=== PATIENT | female | born 1985 | race Caucasian/White ===

== ENCOUNTER 2024-08-29 10:21 | Outpatient (OUT) | payer OTHER, SELFPAY ==
[2024-08-29 11:00] LABS: Basophils Absolute Auto 0.2 10^3/uL (0.0-0.1); Basophils Percent Auto 1.5 % (0.2-2.0); Eosinophils Absolute Auto 0.3 10^3/uL (0.0-0.7); Eosinophils Percent Auto 3.4 % (0.9-7.0); Hematocrit 42.5 % (36.0-48.0); Hemoglobin 14.4 g/dL (12.0-16.0); INR 0.93; Immature Granulocytes Abs Auto 0.03 10^3/uL (0.00-0.03); Immature Granulocytes Pct Auto 0.3 % (0.0-0.5); Lymphocytes Absolute Auto 2.6 10^3/uL (1.2-3.8); Mean Corpuscular HGB Conc 33.9 g/dL (29.9-35.2); Mean Corpuscular Hemoglobin 31.2 pg (26.7-34.0); Mean Platelet Volume 9.2 fL (9.5-13.5); Monocytes Absolute Auto 0.4 10^3/uL (0.3-0.8); Monocytes Percent Auto 4.1 % (1.7-12.0); Neutrophils Absolute Auto 6.6 10^3/uL (1.4-6.5); Neutrophils Percent Auto 64.7 % (43.0-75.0); Partial Thromboplastin Time 33.8 sec (22.3-36.2); Platelet Count 401 10^3/uL (150-450); Prothrombin Time 9.9 sec (9.0-11.6); Red Blood Count 4.62 10^6/uL (4.20-5.40); Red Cell Distribution Width 13.1 % (11.0-15.0); White Blood Count 10.1 10^3/uL (4.0-11.0)
[2024-08-29 11:23] LABS: Free T4 0.78 ng/dL (0.76-1.46)
[2024-08-29 11:31] LABS: Estimated Average Glucose 105 mg/dL; Glycohemoglobin A1C 5.3 % (4.5-6.2)
[2024-08-29 11:33] LABS: HCG Quantitative <1 mIU/mL
== END 2024-08-29 10:22 | disposition home or self-care (01) ==
LOC: LAB 10:26
PROVIDERS: Family Provider Family Medicine; PCP Family Medicine; Visit Provider Physician Assistant
DX: N92.0 Excessive and frequent menstruation with regular cycle (principal)
CPT/HCPCS: 36415; 83036; 84439; 84443; 84702; 85025; 85610; 85730

== ENCOUNTER 2024-09-12 14:57 | Outpatient (OUT) | payer OTHER, SELFPAY ==
--- NOTE | 2024-09-12 15:00 | US_ITS ---
The [address] [address] Patient Name: NANCY PEDERSON MRN: [id number] date: 1985 Sex: F Assigned Patient Location: US Current Patient Location: US Accession/Order Number: [id number] Exam Date: 09/12/2024 22:27 Report Date: 09/12/2024 22:29 At the request of: NEO TA Procedure: US pelvis w/ transvaginal Pelvic ultrasound. Reason for exam: Right-sided pelvic pain on and off for 3 weeks. Comparison: Pelvic ultrasound 11/27/2019 Technique: Transabdominal imaging of the uterus and ovaries was performed. Transvaginal imaging of the uterus and ovaries was also obtained. Additional spectral Doppler analysis of the ovaries was also obtained. Findings: Uterus measures 8.2 x 3.6 x 5.4 cm. No fibroid is noted. Endometrium measures 5.5 mm without focal abnormality. No free fluid is seen. Right ovary measures 4.2 x 3.3 x 2.2 cm. Left ovary not visualized. Normal arterial and venous Doppler waveform of the right ovary. No adnexal mass. Dominant follicle is seen within the right ovary. US/US pelvis w/ transvaginal Impression: Unremarkable ultrasound. Impression dictated by: Jamarcus Manning Jr., D.O.09/12/2024 10:29 PM Dictation Location: [place] [address] Electronically authenticated by: [id number] Y Date: 09/12/2024 22:29
--- OUTSIDE RECORDS SUMMARY | 2024-09-12 15:06 | XMS_ITS | CCD ---
Author Organization [facility] Care Team Providers Care Retail Administrative Assistant Name Role Phone KEILY, DOM Admitting Unavailable KEILY, DOM Attending Unavailable KEILY, DOM Consulting Unavailable KEILY, DOM Admitting Unavailable KEILY, DOM Attending Unavailable MAXIMINO, EMMA Primary Care Unavailable KEILY, DOM Consulting Unavailable AHMED, ROSANGELA Consulting Unavailable KEILY, DOM Admitting Unavailable KEILY, DOM Attending Unavailable MAXIMINO, EMMA Primary Care Unavailable KEILY, DOM Consulting Unavailable SONIA VAZQUEZ Consulting Unavailable KEILY, DOM Admitting Unavailable KEILY, DOM Attending Unavailable MAXIMINO, EMMA Consulting Unavailable KEILY, DOM Consulting Unavailable Maximino MAYS, Emma Negrete Primary Care Provider CASIMIRO HARO Attending Unavailable HEMELLIE TILLEY Referring Unavailable HEMMER, ELLIE Primary Care Unavailable CASIMIRO HARO Attending Unavailable HEMMERELLIE Referring Unavailable MAXIMINO, EMMA F Primary Care Unavailable CASIMIRO HARO Attending Unavailable MAXIMINO, EMMA F Referring Unavailable MAXIMINO, EMMA F Primary Care Unavailable CASIMIRO HARO Attending Unavailable MAXIMINO, EMMA F Referring Unavailable MAXIMINO, EMMA F Primary Care Unavailable CASIMIRO HARO Attending Unavailable MAXIMINO, EMMA F Referring Unavailable MAXIMINO, EMMA F Primary Care Unavailable CASIMIRO HARO Attending Unavailable MAXIMINO, EMMA F Referring Unavailable MAXIMINO, EMMA F Primary Care Unavailable MYESHA TA Attending Unavailable RUPERTO SHIPMAN Attending Unavailable RUPERTO SHIPMAN Attending Unavailable MAXIMINO, EMMA F Attending Unavailable MAXIMINO, EMMA F Attending Unavailable SHANIKA ALEJANDRO Attending Unavailab le Allergies Allergy Classification Reported Allergen(s) Allergy Type Date of Onset Reaction(s) Facility (1 source) Codeine Drug Allergy 3 [facility] Repository (1 source) Penicillin Drug Allergy 3 [facility] Rep[facility] (11 sources) Cefadroxil; Translations: [CEFADROXIL] Drug Allergy 3 [facility] (11 sources) Penicillins; Translations: [PENICILLINS] Drug Intolerance 7 [facility] Medications Current Medications Medication Drug Class(es) Dates Sig (Normalized) Sig (Original) acetaminophen 500 mg oral tablet (10 sources) take 2 tablets by mouth in the morning acetaminophen (Tylenol) 500 MG tablet Take 1,000 mg by mouth in the morning. Active azithromycin 250 mg oral tablet (5 sources) Macrolide Antimicrobial Start: 05-10-2024 End: 07-23-2024 take 2 tablets by mouth once daily, then take 1 tablet by mouth once daily azithromycin (Zithromax) 250 MG tablet Indications: Acute bronchitis due to other specified organisms 2 tab po every day x1 day then 1 tab po every day x4 days 6 tablet 05/10/2024 07/23/2024 Discontinued cloNIDine hydrochloride 0.1 mg oral tablet (3 sources) Central alpha-2 Adrenergic Agonist Start: 01-18-2024 End: 01-17-2025 take 1 tablet by mouth twice daily as needed cloNIDine (Catapres) 0.1 MG tablet Take 0.1 mg by mouth 2 (two) times a day as needed 01/18/2024 05/10/2024 Discontinued (Therapy completed) ibuprofen 800 mg oral tablet (3 sources) Nonsteroidal Anti-inflammatory Drug Start: 08-29-2024 End: 09-08-2024 take 1 tablet by mouth every six hours for pain ibuprofen 800 MG tablet Indications: Cramp, abdominal , History of ovarian cyst Take 1 tablet (800 mg) by mouth every 6 (six) hours if needed for mild pain for up to 10 days 20 tablet 08/29/2024 09/08/2024 Active meloxicam 15 mg oral tablet (3 sources) Nonsteroidal Anti-inflammatory Drug Start: 02-15-2023 End: 05-10-2024 take 1 tablet by mouth in the morning meloxicam (Mobic) 15 MG tablet Indications: Cubital tunnel syndrome of both upper extremities Take 1 tablet (15 mg) by mouth in the morning. 30 tablet 1 02/15/2023 05/10/2024 Discontinued (Therapy completed) ofloxacin 3 mg/ml otic solution (2 sources) Quinolone Antimicrobial Start: 07-23-2024 End: 07-30-2024 ofloxacin (Floxin) 0.3 % otic solution Indications: Acute diffuse otitis externa of left ear Administer 10 drops into affected ear(s) Daily for 7 days 5 mL 07/23/2024 07/30/2024 Active temazepam 15 mg oral capsule (8 sources) Benzodiazepine Start: 07-11-2024 temazepam (Restoril) 15 MG capsule Take 15 mg by mouth as needed at bedtime for sleep 07/11/2024 Active End: 07-23-2024 temazepam (Restoril) 7.5 MG capsule Take 7.5 mg by mouth as needed at bedtime for sleep 07/23/2024 Discontinued vortioxetine 10 mg oral tablet (9 sources) Start: 07-11-2024 take 1 tablet by mouth in the morning Vortioxetine HBr 10 MG tablet Take 10 mg by mouth in the morning. 07/11/2024 Active Start: 01-18-2024 End: 07-23-2024 Vortioxetine HBr (Trintellix ) 5 MG tablet 01/18/2024 07/23/2024 Discontinued Problems Active Problems Problem Classification Problem Date Documented Date Episodic/Chronic Abdominal pain (2 sources) Finding of sensation of abdomen; Translations: [Unspecified abdominal pain] 08-29-2024 Episodic Abdominal pain (4 sources) Pelvic and perineal pain; Translations: [PELVIC AND PERINEAL PAIN] Onset: 12-28-2019 Acute bronchitis (2 sources) Acute infective bronchitis; Translations: [Acute bronchitis due to other specified organisms] 05-10-2024 Episodic Anxiety disorders (11 sources) Generalized anxiety disorder; Translations: [Generalized anxiety disorder] Onset: 01-18-2024 01-20-2024 Chronic Contraceptive and procreative management (2 sources) Encounter for sterilization; Translations: [Encounter for removal of intrauterine contraceptive device] Onset: 01-21-2020 Episodic Diabetes mellitus with complications (4 sources) Type 2 diabetes mellitus with other circulatory complications; Translations: [TYP 2 DM W/CIRC COMPLICATIONS] Onset: 12-21-2019 Chronic Hypertension with complications and secondary hypertension (10 sources) Nephrosclerosis; Translations: [Hypertensive chronic kidney disease with stage 1 through stage 4 chronic kidney disease, or unspecified chronic kidney disease] Onset: 01-05-2023 01-05-2023 Chronic Menstrual disorders (8 sources) Irregular menstruation, unspecified; Translations: [Dysmenorrhea, unspecified] Onset: 11-27-2019 08-29-2024 Chronic Mood disorders (20 sources) Depressive disorder; Translations: [Depression] Onset: 01-05-2023 01-05-2023 Chronic Other ear and sense organ disorders (10 sources) Conductive hearing loss; Translations: [Conductive hearing loss, unspecified] Onset: 01-05-2023 01-05-2023 Chronic Other ear and sense organ disorders (2 sources) Acute otitis externa; Translations: [Diffuse otitis externa, left ear] 07-23-2024 Episodic Other female genital disorders (2 sources) History of gynecological disorder; Translations: [Personal history of other diseases of the female genital tract] 08-29-2024 Episodic Ovarian cyst (1 source) Unspecified ovarian cyst, right side; Translations: [UNSPECIFIED OVARIAN CYST RIGHT SIDE] Onset: 01-21-2020 Substance-related disorders (1 source) Nicotine dependence, cigarettes, uncomplicated; Translations: [NICOTINE DEPEND CIGARETTES UNCOMP] Onset: 01-21-2020 Chronic Past or Other Problems Problem Classification Problem Date Documented Date Episodic/Chronic Immunizations and screening for infectious disease (1 source) Encounter for screening for human papillomavirus (HPV); Translations: [ENC SCREENING HUMAN PAPILLOMAVIRUS] Onset: 09-26-2019 Episodic Mood disorders (10 sources) Mood disorders Onset: 09-19-2023 09-19-2023 Other connective tissue disease (10 sources) Pain of bilateral upper limbs; Translations: [Pain in right arm] Onset: 02-22-2023 02-22-2023 Episodic Other screening for suspected conditions (not mental disorders or infectious disease) (4 sources) Encounter for screening for malignant neoplasm of cervix; Translations: [ENC SCREENING MALIG NEOPLASM CERV] Onset: 09-24-2019 Episodic Residual codes; unclassified (10 sources) Insomnia; Translations: [Insomnia, unspecified] Onset: 01-05-2023 01-05-2023 Episodic Results Test Name Value Interpretation Reference Range Facility ALL CBC WITH AUTO DIFFon BASOPHILS ABSOLUTE AUTO 0.2 High [facility] Basophils/100 WBC (Bld) 1.5 % 0.2 - 2.0 % [facility] Eosinophils/100 WBC (Bld) 3.4 % 0.9 - 7.0 % [facility] Erythrocyte distribution width (RBC) [Ratio] 13.1 % 11.0 - 15.0 % [facility] Hematocrit (Bld) [Volume fraction] 42.5 % 36.0 - 48.0 % [facility] Hemoglobin (Bld) [Mass/Vol] 14.4 g/dL 12.0 - 16.0 g/dL [facility] IMMATURE GRANULOCYTES ABS AUTO 0.03 [facility] Immature granulocytes/100 WBC (Bld) 0.3 % 0.0 - 0.5 % [facility] Interpretation and review of laboratory results Abnormal [facility] re LYMPHOCYTES ABSOLUTE AUTO 2.6 [facility] Lymphocytes/100 WBC (Bld) 26 % 20.5 - 60.0 % [facility] MCH (RBC) [Entitic mass] 31.2 pg 26.7 - 34.0 pg [facility] MCHC (RBC) [Mass/Vol] 33.9 g/dL 29.9 - 35.2 g/dL [facility] MCV (RBC) [Entitic vol] 92 fL 81.0 - 99.0 fL [facility] MONOCYTES ABSOLUTE AUTO 0.4 [facility] Monocytes/100 WBC (Bld) 4.1 % 1.7 - 12.0 % [facility] NEUTROPHILS ABSOLUTE AUTO 6.6 High [facility] Neutrophils/100 WBC (Bld) 64.7 % 43.0 - 75.0 % [facility] Platelet mean volume (Bld) [Entitic vol] 9.2 fL Low 9.5 - 13.5 fL [facility] TBH EO # 0.3 [facility] [address] [facility] RBC 4.62 [facility] e [facility] WBC 10.1 [facility] Urinalysis macro (dipstick) panel (U)on 08-29-2024 Bilirubin, UA Negative Negative - 4(70) +++ mg/dL [facility] Blood, UA Positive Negative - 50 Myron/mcL [facility] Comment on above: trace-intact Clarity, UA Clear [facility] re Color, UA Yellow [facility] e Glucose, UA Negative Negative - 2000(110) ++++ mg/dL [facility] Interpretation and review of laboratory results Abnormal [facility] re Ketones, UA Negative Negative - 160(16) ++++ mg/dL [facility] Leukocytes, UA Negative Negative - 500+++ Johanna/mcL [facility] Nitrite, UA Negative Negative - Positive [facility] pH, UA 6.5 5 - 9 [facility] e Protein, UA Negative Negative - 2000(20) ++++ mg/dL [facility] Spec Grav, UA 1.015 1 - 1.03 [facility] Urobilinogen, UA 0.2 0.2 - 12 mg/dL [facility] Orderson 05-08-2020 Provider Orders [id number] [facility] Coding Summaryon 05-02-2020 Coding Summary CODING DATE: 05/02/2020 [facility] STATUS: Home PAYOR: Commercial Insurance APC DESCRIPTION 5522 Level 2 Imaging without Contrast ADMIT DX: REASON FOR VISIT DX: H92.11 Otorrhea, right ear FINAL DX: PRINCIPAL: H92.11 Otorrhea, right ear SECONDARY: PYMT PROC APC STAT DESCRIPTION DOCTOR NAME DATE NOTE: The code number assigned matches the documented diagnosis and / or procedure in the patient's chart. However, the narrative phrase printed from the coding software may appear abbreviated, or result in slightly different terminology. Coded By: Alanis Oliveira Date Saved: 05/02/2020 11:[address] am [facility] [address] Orbit Sella etc. w/o Cont [facility] 05-01-2020 CT Orbit Sella etc. w/o Contrast EXAMINATION: CT Orbit Sella etc. w/o Contrast. HISTORY: Conductive hearing loss, unspecified, otorrhea, right ear, unspecified perforation of tympanic membrane, unspecified ear, otorrhea, unspecified ear, otitis media, unspecified, unspecified ear, personal history of other diseases of the nervous system and se COMPARISON: None. TECHNIQUE: CT scan performed through the skull base and temporal bones, reconstructed in the axial, coronal and sagittal plane. Dose reduction techniques were achieved by using automated exposure control and/or adjustment of mA and/or kV according to patient size and/or use of iterative reconstruction technique. FINDINGS: Patient is status post prior mastoidectomy. The surgical bed is opacified. The residual mastoid air cells are opacified. Opacification of the mastoid attic and middle ear, extending into the region of the round and oval windows. No evidence of erosion of the lateral semicircular canal. The otic capsule is normal in appearance. Facial nerve is normal in course. No evidence of osseous dehiscence at the level of the jugular bulb or carotid canal. The contralateral temporal bone is normal in appearance. IMPRESSION: 1. Complete opacification of the surgical bed status post right mastoidectomy as well as opacification of the residual mastoid air cells, mastoid attic and middle ear. 2. No evidence of erosion of the lateral semicircular canal. 3. The facial nerve is normal in course and there is no evidence of osseous dehiscence of the vascular structures. Final Dictated by: Ascencion Godinez Dictated DT/TM: 05/02/20 8:52 Signed (Electronic Signature): Ascencion Godinez 05/02/20 10:35 a Technologist: KAITLIN SPARROW [facility] Coding Summaryon 04-20-2020 Coding Summary CODING DATE: 04/20/2020 [facility] STATUS: Home PAYOR: Commercial Insurance ADMIT DX: REASON FOR VISIT DX: H92.01 Otalgia, right ear FINAL DX: PRINCIPAL: H66.91 Otitis media, unspecified, right ear SECONDARY: PYMT PROC APC STAT DESCRIPTION DOCTOR NAME DATE NOTE: The code number assigned matches the documented diagnosis and / or procedure in the patient's chart. However, the narrative phrase printed from the coding software may appear abbreviated, or result in slightly different terminology. Coded By: Mike Rahman Date Saved: 04/20/2020 01:12 pm [facility] Coding Summary CODING DATE: 04/20/2020 [facility] STATUS: Home PAYOR: Commercial Insurance ADMIT DX: REASON FOR VISIT DX: H92.01 Otalgia, right ear FINAL DX: PRINCIPAL: H66.91 Otitis media, unspecified, right ear SECONDARY: PYMT PROC APC STAT DESCRIPTION DOCTOR NAME DATE NOTE: The code number assigned matches the documented diagnosis and / or procedure in the patient's chart. However, the narrative phrase printed from the coding software may appear abbreviated, or result in slightly different terminology. Coded By: Mike Rahman Date Saved: 04/20/2020 01:11 pm [facility] ED Clinical Summaryon 2019 ED Clinical Summary [facility] [address] [place], [place] [id number] ED Clinical Summary PERSON INFORMATION Name: SVITLANA OSEGUERA Age: 35 Years Sex: FEMALE : 1985 MRN: Acct#: Visit Reason: Ear pain; C/O RIGHT EAR PAIN Arrival: 04/16/2020 22:23:02 Discharge: 04/16/2020 22:56:00 LOS: 000 00:33 Check In: 04/16/2020 22:23:02 Checkout:04/16/2020 22:56:00 Address: [address] [facility] [id number] PCP: Ellie Denis PROVIDER INFORMATION Provider Role Assigned Unassigned Clarence Torre PA-C ED PA 04/16/2020 22:24:56 Amandeep RN, Ashly ED Nurse 04/16/2020 22:29:26 VITALS INFORMATION Vital Sign Triage Latest Temperature Tympanic Temperature Temporal Artery Pulse Rate 86 bpm 86 bpm O2 Sat 100 % 100 % Respiratory Rate 18 br/min 18 br/min Blood Pressure /88 mmHg /88 mmHg MEDICAL INFORMATION Medications Given: Medication Dose Route ketorolac 30 mg IM doxycycline 100 mg PO Allergy Information: penicillins; codeine PHYSICIAN DOCUMENTATION Patient: SVITLANA OSEGUERA Age: 35 years Sex: FEMALE : 1985 Associated Diagnoses: Otitis media of right ear Author: Clarence Torre PA-C Basic Information Time seen: Date & time 04/16/2020 22:26:00. History source: Patient. Arrival mode: Private vehicle. History limitation: None. History of Present Illness 35-year-old female presents here to the emergency department this evening with chief complaint of right ear pain that started yesterday. Patient states discomfort started last evening in which tonight she went to go to bed and could not due to severe pain. Patient states she has had multiple ear infections in the past and when she has a ruptured left tympanic membrane. 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 Patient denies any fever chills denies any sore throat nasal congestion rhinorrhea or cough. Denies any Cobin exposure recent sick contacts or travel. She denies any cough shortness of breath or chest pain. Denies any abdominal pain nausea vomiting or diarrhea. Patient notes allergy to codeine and penicillins. Notes they typically would treat her with Zithromax and Floxin drops however states that Zithromax does not work anymore as she has had so many ear infections. Is unsure of the last time she had a cephalosporin in regards to penicillin allergy. She has no other concerns at this time. Review of Systems Constitutional symptoms: No fever, no chills, no sweats, no weakness, no fatigue. Skin symptoms: No rash, no pruritus, no abrasions. Eye symptoms: Vision unchanged. ENMT symptoms: Ear pain, no sore throat, no nasal congestion, no sinus pain. Respiratory symptoms: No shortness of breath, no cough. Cardiovascular symptoms: No chest pain, Gastrointestinal symptoms: No abdominal pain, no nausea, no vomiting, no diarrhea. Genitourinary symptoms: No dysuria, no hematuria. Musculoskeletal symptoms: No back pain, no Muscle pain, no Joint pain. Neurologic symptoms: No headache, Additional review of systems information: All other systems reviewed and otherwise negative. Health Status Allergies: Allergic Reactions (Selected) Severity Not Documented Codeine- No reactions were documented. Penicillins- No reactions were documented.. Medications: (Selected) Inpatient Medications Completed Toradol: 30 mg = 1 mL, IM, Once doxycycline hyclate: 100 mg = 1 cap(s), PO, Once Discontinued Floxin 0.3% otic solution: 10 drop(s), Right ear, Once Prescriptions Prescribed Zithromax 250 mg oral tablet: 1 packet(s), PO, Once, as directed on package labeling, 6 tab(s), 0 Refill(s) doxycycline hyclate 100 mg oral capsule: 100 mg, PO, BID, for 7 day(s), 14 cap(s), 0 Refill(s) ofloxacin 0.3% otic solution: 10 drop(s), Otic, Daily, for 7 day(s), Right ear, 5 mL, 0 Refill(s) Completed Floxin 0.3% otic solution: 10 drop(s), Right ear, Daily, for 7 day(s), 5 mL, 1 Refill(s). Menstrual history: Tubal ligation. Past Medical/ Family/ Social History Surgical history: Tubal ligation ([id number]). Comments: 04/16/2020 22:32 EDT - Amandeep EVANS, Ashly 2019. Social history: Social & Psychosocial Habits Alcohol 04/16/2020 Alcohol Use: Current Frequency: 1-2 times per week Substance Abuse 03/19/2019 Substance use: Never Tobacco 04/16/2020 Smoking tobacco use: Never (less than 100 in l Electronic Cigarette/Vaping 04/16/2020 Electronic Cigarette Use: Never . Physical Examination General: Alert, no acute distress. Skin: Warm, dry, intact, no pallor, no rash. Head: Normocephalic, atraumatic. Eye: Pupils are equal, round and reactive to light, extraocular movements are intact, normal conjunctiva. Ears, nose, mouth and throat: Oral mucosa moist, no pharyngeal erythema or exudate, Patient has a ruptured left tympanic membrane however ear appears unremarkable. Right canal is patent. Patient has old scarring at the posterior ear as she states the ear got ripped off and had to be sewn back on. Patient has an erythematous right tympanic membrane with a bulging. Some fluid behind the TM. Appears to have an acute otitis media of the right ear. No tonsillar erythema or exudate. No signs of peritonsillar abscess. No trismus or drooling.. Cardiovascular: Regular rate and rhythm, No murmur, Normal peripheral perfusion, No edema, S1, S2, regular rhythm. No murmurs gallops or rubs.. Respiratory: Lungs are clear to auscultation, respirations are non-labored, breath sounds are equal, Symmetrical chest wall expansion, Lung sounds are clear bilaterally. No wheezing rhonchi or crackles on exam.. Neurological: Alert and oriented to person, place, time, and situation, No focal neurological deficit observed, normal sensory observed, normal motor observed, normal speech observed, normal coordination observed, Normal sensory, motor, speech, coordination is observed on exam of the patient.. Psychiatric: Cooperative, appropriate mood & affect, normal judgment, non-suicidal. Medical Decision Making Orders [facility] Orders Pharmacy: Toradol (Order): 30 mg, IM, Once Floxin 0.3% otic solution (Order): 10 drop(s), Right ear, Once, [facility]: doxycycline hyclate (Order): 100 mg, PO, Once, [facility]: Floxin 0.3% otic solution (Discontinue): 10 drop(s), Right ear, Once. Reexamination/ Reevaluation 22:43 I spoke with patient regards to history of ear infections she believes she was placed on cephalosporin last time as she has had Zithromax in the past due to penicillin allergy in which Zithromax no longer typically works for her ear infections. She is unsure as to which cephalosporin worked for her and she denies reactivity but states that her penicillin allergy is kind of severe and she is allergic to many of its relatives. Is unsure the last time she had a cephalosporin antibiotic. I spoke with attending physician in regards to right otitis media and antibiotic choice at which this time we use doxycycline twice daily over the next 7 days in which patient is given 1 dose here in the emergency department. Patient discharged home to follow closely with primary care provider as well as with ENT in regards to right otitis media as she has had multiple issues with the right ear in the past including mastoiditis inner and outer ear infections. Patient also requested Floxin drops which always helps with her ear infections will do that for her today. Patient understands that she may return here to the emergency department for any worsening or concerning symptoms understands to follow closely with primary care provider in 3 to 5 days she will contact her office tomorrow morning to schedule follow-up appointment. Impression and Plan Diagnosis Otitis media of right ear ([id number] H66.91, Discharge, Medical) Plan Condition: Stable. Disposition: Discharged: Time 04/16/2020 22:45:00, to home. Prescriptions: [facility] prescriptions Pharmacy: doxycycline hyclate 100 mg oral capsule (Prescribe): 100 mg, PO, BID, for 7 day(s), 14 cap(s), 0 Refill(s), [facility] prescriptions [facility]: ofloxacin 0.3% otic solution (Prescribe): 10 drop(s), Otic, Daily, for 7 day(s), Right ear, 5 mL, 0 Refill(s). Patient was given the following educational materials: Otitis Media, Adult, Otitis Media, Adult, Otitis Media, Adult, Otitis Media, Adult. Follow up with: Joao Guaman Within 3 to 5 days; Ellie Denis Within 3 to 5 days Please follow closely with your primary care provider in 3 to 5 days. Please contact her office tomorrow morning to schedule follow-up appointment in regards to right ear pain and right inner ear infection. You were seen and evaluated in the emergency department for right ear pain that started last evening worse today. You were treated with Toradol for pain as well as doxycycline, antibiotic which she will take twice daily over the next 7 days this was sent to [facility] for you. A prescription also for Floxin eardrops was sent to [facility] for you. 10 drops in the right ear daily over the next 7 days which he should lie on the opposite side when placing eardrops and lie there for 5 minutes before standing. Continue Tylenol or ibuprofen as needed for pain follow-up with footwear factory worker if continued right ear pain or discomfort. Information is given for you in regards to local ENT Dr. Guaman. You may return here to the emergency department for any worsening or concerning symptoms.. Counseled: Patient, Regarding diagnosis, Regarding treatment plan, Regarding prescription, Patient indicated understanding of instructions. DISCHARGE INFORMATION: Discharge Disposition: Home Discharge Location: Home PATIENT EDUCATION INFORMATION Instructions: Otitis Media, Adult Follow-Up: With: Address: When: Ellie Denis [address] [place] [address] [address] [place] [address] [facility] (1) Within 3 to 5 days Comments: Please follow closely with your primary care provider in 3 to 5 days. Please contact her office tomorrow morning to schedule follow-up appointment in regards to right ear pain and right inner ear infection. You were seen and evaluated in the emergency department for right ear pain that started last evening worse today. You were treated with Toradol for pain as well as doxycycline, antibiotic which she will take twice daily over the next 7 days this was sent to [facility] for you. A prescription also for Floxin eardrops was sent to [facility] for you. 10 drops in the right ear daily over the next 7 days which he should lie on the opposite side when placing eardrops and lie there for 5 minutes before standing. Continue Tylenol or ibuprofen as needed for pain follow-up with footwear factory worker if continued right ear pain or discomfort. Information is given for you in regards to local ENT Dr. Guaman. You may return here to the emergency department for any worsening or concerning symptoms. With: Address: When: Joao Guaman [address] [place], [place] [id number] Business (1) Within 3 to 5 days DIAGNOSIS: Otitis media of right ear Patient Understands: Yes - Patient/family/caregi dillon verbalizes understanding of instructions given Comment: [facility] ED Note - Physicianon 2019 ED Note - Physician Patient: SVITLANA OSEGUERA Age: 35 years Sex: FEMALE : 1985 Associated Diagnoses: Otitis media of right ear Author: Nicho GALLAGHER, Clarence Amaral Basic Information Time seen: Date & time 04/16/2020 22:26:00. History source: Patient. Arrival mode: Private vehicle. History limitation: None. History of Present Illness 35-year-old female presents here to the emergency department this evening with chief complaint of right ear pain that started yesterday. Patient states discomfort started last evening in which tonight she went to go to bed and could not due to severe pain. Patient states she has had multiple ear infections in the past and when she has a ruptured left tympanic membrane. 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 Patient denies any fever chills denies any sore throat nasal congestion rhinorrhea or cough. Denies any Cobin exposure recent sick contacts or travel. She denies any cough shortness of breath or chest pain. Denies any abdominal pain nausea vomiting or diarrhea. Patient notes allergy to codeine and penicillins. Notes they typically would treat her with Zithromax and Floxin drops however states that Zithromax does not work anymore as she has had so many ear infections. Is unsure of the last time she had a cephalosporin in regards to penicillin allergy. She has no other concerns at this time. Review of Systems Constitutional symptoms: No fever, no chills, no sweats, no weakness, no fatigue. Skin symptoms: No rash, no pruritus, no abrasions. Eye symptoms: Vision unchanged. ENMT symptoms: Ear pain, no sore throat, no nasal congestion, no sinus pain. Respiratory symptoms: No shortness of breath, no cough. Cardiovascular symptoms: No chest pain, Gastrointestinal symptoms: No abdominal pain, no nausea, no vomiting, no diarrhea. Genitourinary symptoms: No dysuria, no hematuria. Musculoskeletal symptoms: No back pain, no Muscle pain, no Joint pain. Neurologic symptoms: No headache, Additional review of systems information: All other systems reviewed and otherwise negative. Health Status Allergies: Allergic Reactions (Selected) Severity Not Documented Codeine- No reactions were documented. Penicillins- No reactions were documented.. Medications: (Selected) Inpatient Medications Completed Toradol: 30 mg = 1 mL, IM, Once doxycycline hyclate: 100 mg = 1 cap(s), PO, Once Discontinued Floxin 0.3% otic solution: 10 drop(s), Right ear, Once Prescriptions Prescribed Zithromax 250 mg oral tablet: 1 packet(s), PO, Once, as directed on package labeling, 6 tab(s), 0 Refill(s) doxycycline hyclate 100 mg oral capsule: 100 mg, PO, BID, for 7 day(s), 14 cap(s), 0 Refill(s) ofloxacin 0.3% otic solution: 10 drop(s), Otic, Daily, for 7 day(s), Right ear, 5 mL, 0 Refill(s) Completed Floxin 0.3% otic solution: 10 drop(s), Right ear, Daily, for 7 day(s), 5 mL, 1 Refill(s). Menstrual history: Tubal ligation. Past Medical/ Family/ Social History Surgical history: Tubal ligation ([id number]). Comments: 04/16/2020 22:32 NOET - Amandeep EVANS, Ashly 2019. Social history: Social & Psychosocial Habits Alcohol 04/16/2020 Alcohol Use: Current Frequency: 1-2 times per week Substance Abuse 03/19/2019 Substance use: Never Tobacco 04/16/2020 Smoking tobacco use: Never (less than 100 in l Electronic Cigarette/Vaping 04/16/2020 Electronic Cigarette Use: Never . Physical Examination General: Alert, no acute distress. Skin: Warm, dry, intact, no pallor, no rash. Head: Normocephalic, atraumatic. Eye: Pupils are equal, round and reactive to light, extraocular movements are intact, normal conjunctiva. Ears, nose, mouth and throat: Oral mucosa moist, no pharyngeal erythema or exudate, Patient has a ruptured left tympanic membrane however ear appears unremarkable. Right canal is patent. Patient has old scarring at the posterior ear as she states the ear got ripped off and had to be sewn back on. Patient has an erythematous right tympanic membrane with a bulging. Some fluid behind the TM. Appears to have an acute otitis media of the right ear. No tonsillar erythema or exudate. No signs of peritonsillar abscess. No trismus or drooling.. Cardiovascular: Regular rate and rhythm, No murmur, Normal peripheral perfusion, No edema, S1, S2, regular rhythm. No murmurs gallops or rubs.. Respiratory: Lungs are clear to auscultation, respirations are non-labored, breath sounds are equal, Symmetrical chest wall expansion, Lung sounds are clear bilaterally. No wheezing rhonchi or crackles on exam.. Neurological: Alert and oriented to person, place, time, and situation, No focal neurological deficit observed, normal sensory observed, normal motor observed, normal speech observed, normal coordination observed, Normal sensory, motor, speech, coordination is observed on exam of the patient.. Psychiatric: Cooperative, appropriate mood & affect, normal judgment, non-suicidal. Medical Decision Making Orders Launch Orders Pharmacy: Toradol (Order): 30 mg, IM, Once Floxin 0.3% otic solution (Order): 10 drop(s), Right ear, Once, [facility] Orders [facility]: doxycycline hyclate (Order): 100 mg, PO, Once, [facility]: Floxin 0.3% otic solution (Discontinue): 10 drop(s), Right ear, Once. Reexamination/ Reevaluation 22:43 I spoke with patient regards to history of ear infections she believes she was placed on cephalosporin last time as she has had Zithromax in the past due to penicillin allergy in which Zithromax no longer typically works for her ear infections. She is unsure as to which cephalosporin worked for her and she denies reactivity but states that her penicillin allergy is kind of severe and she is allergic to many of its relatives. Is unsure the last time she had a cephalosporin antibiotic. I spoke with attending physician in regards to right otitis media and antibiotic choice at which this time we use doxycycline twice daily over the next 7 days in which patient is given 1 dose here in the emergency department. Patient discharged home to follow closely with primary care provider as well as with ENT in regards to right otitis media as she has had multiple issues with the right ear in the past including mastoiditis inner and outer ear infections. Patient also requested Floxin drops which always helps with her ear infections will do that for her today. Patient understands that she may return here to the emergency department for any worsening or concerning symptoms understands to follow closely with primary care provider in 3 to 5 days she will contact her office tomorrow morning to schedule follow-up appointment. Impression and Plan Diagnosis Otitis media of right ear ([id number] H66.91, Discharge, Medical) Plan Condition: Stable. Disposition: Discharged: Time 04/16/2020 22:45:00, to home. Prescriptions: Launch prescriptions Pharmacy: doxycycline hyclate 100 mg oral capsule (Prescribe): 100 mg, PO, BID, for 7 day(s), 14 cap(s), 0 Refill(s), [facility] prescriptions Pharmacy: ofloxacin 0.3% otic solution (Prescribe): 10 drop(s), Otic, Daily, for 7 day(s), Right ear, 5 mL, 0 Refill(s). Patient was given the following educational materials: Otitis Media, Adult, Otitis Media, Adult, Otitis Media, Adult, Otitis Media, Adult. Follow up with: Joao Guaman Within 3 to 5 days; Ellie Denis Within 3 to 5 days Please follow closely with your primary care provider in 3 to 5 days. Please contact her office tomorrow morning to schedule follow-up appointment in regards to right ear pain and right inner ear infection. You were seen and evaluated in the emergency department for right ear pain that started last evening worse today. You were treated with Toradol for pain as well as doxycycline, antibiotic which she will take twice daily over the next 7 days this was sent to [facility] for you. A prescription also for Floxin eardrops was sent to [facility] for you. 10 drops in the right ear daily over the next 7 days which he should lie on the opposite side when placing eardrops and lie there for 5 minutes before standing. Continue Tylenol or ibuprofen as needed for pain follow-up with footwear factory worker if continued right ear pain or discomfort. Information is given for you in regards to local ENT Dr. Guaman. You may return here to the emergency department for any worsening or concerning symptoms.. Counseled: Patient, Regarding diagnosis, Regarding treatment plan, Regarding prescription, Patient indicated understanding of instructions. [Electronically Signed on: 04/16/2020 22:56 EDT] Clarence Torre PA-C [Verified on: 04/16/2020 22:56 EDT] Clarence Torre PA-C [facility] ED Note-Nursingon 04-17-2020 ED Note-Nursing Pt arrives to ED angelina m 7 complaining of right ear pain since yesterday. Pt states that today she has taken the max dose of tylenol and she couldn't take anymore. Pt states that her pain is an 11/10 and that she has a history of issues with this ear. Pt states that she feels like her ear is going to explode. Pt denies any other complaints at this time. She states that she had a tubal this year but nothing else in her history has changed. Pt currently resting on cart. [facility] ED Patient Education Noteon 04-17-2020 ED Patient Education Note Education Materials ENT Otitis Media, Adult Otitis media occurs when there is inflammation and fluid in the middle ear. Your middle ear is a part of the ear that contains bones for hearing as well as air that helps send sounds to your brain. What are the causes? This condition is caused by a blockage in the eustachian tube. This tube drains fluid from the ear to the back of the nose (nasopharynx). A blockage in this tube can be caused by an object or by swelling (edema) in the tube. Problems that can cause a blockage include: ? A cold or other upper respiratory infection. ? Allergies. ? An irritant, such as tobacco smoke. ? Enlarged adenoids. The adenoids are areas of soft tissue located high in the back of the throat, behind the nose and the roof of the mouth. ? A mass in the nasopharynx. ? Damage to the ear caused by pressure changes (barotrauma). What are the signs or symptoms? Symptoms of this condition include: ? Ear pain. ? A fever. ? Decreased hearing. ? A headache. ? Tiredness (lethargy). ? Fluid leaking from the ear. ? Ringing in the ear. How is this diagnosed? This condition is diagnosed with a physical exam. During the exam your health care provider will use an instrument called an otoscope to look into your ear and check for redness, swelling, and fluid. He or she will also ask about your symptoms. Your health care provider may also order tests, such as: ? A test to check the movement of the eardrum (pneumatic otoscopy). This test is done by squeezing a small amount of air into the ear. ? A test that changes air pressure in the middle ear to check how well the eardrum moves and whether the eustachian tube is working (tympanogram). How is this treated? This condition usually goes away on its own within 3?5 days. But if the condition is caused by a bacteria infection and does not go away own its own, or keeps coming back, your health care provider may: ? Prescribe antibiotic medicines to treat the infection. ? Prescribe or recommend medicines to control pain. Follow these instructions at home: ? Take zzig-oed-zgibudu and prescription medicines only as told by your health care provider. ? If you were prescribed an antibiotic medicine, take it as told by your health care provider. Do not stop taking the antibiotic even if you start to feel better. ? Keep all follow-up visits as told by your health care provider. This is important. Contact a health care provider if: ? You have bleeding from your nose. ? There is a lump on your neck. ? You are not getting better in 5 days. ? You feel worse instead of better. Get help right away if: ? You have severe pain that is not controlled with medicine. ? You have swelling, redness, or pain around your ear. ? You have stiffness in your neck. ? A part of your face is paralyzed. ? The bone behind your ear (mastoid) is tender when you touch it. ? You develop a severe headache. Summary ? Otitis media is redness, soreness, and swelling of the middle ear. ? This condition usually goes away on its own within 3?5 days. ? If the problem does not go away in 3?5 days, your health care provider may prescribe or recommend medicines to treat your symptoms. ? If you were prescribed an antibiotic medicine, take it as told by your health care provider. This information is not intended to replace advice given to you by your health care provider. Make sure you discuss any questions you have with your health care provider. Document Released: 04/01/2005 Document Revised: 06/09/2018 Document Reviewed: 06/17/2017 [employer] Patient Education ? 2019 [employer]. [facility] ED Patient Summaryon 020 ED Patient Summary [facility] - [facility] Department [address] [id number] PATIENT DISCHARGE INSTRUCTIONS Patient Information Name: SVITLANA OSEGUERA Age: 35 Years Date of : 1985 Reason For Visit: Ear pain; C/O RIGHT EAR PAIN Arrival Time: 04/16/2020 22:23:02 Primary Care Physician: Ellie Denis Attending Physician: Adriano Doherty DO Comment: Visit Diagnosis: Diagnoses This Visit Ear pain ([id number]) Otitis media of right ear (H66.91) Prescription Information: If you have been given a prescription for narcotics, seek immediate medical attention if you have any difficulty breathing or any sudden status changes such as confusion and sleepiness. If you or anyone you know is experiencing suicidal thoughts, mental health, alcohol and/or drug addiction problems; contact the [facility] 31/01 Crisis Hotline -Text 9SXWM vz 250092. If you received any narcotics, sedation, or any other medication that causes drowsiness for the next 24 hours, unless otherwise directed: ? Do not drive a car. ? Do not operate machinery such as power tools, lawn mowers, drills, sewing machines, or stoves ? Avoid alcoholic beverages and drugs for allergies, nerves, or sleep ? Do not make important personal or business decisions or sign any legal documents With: Address: When: Ellie Denis [address] [place] [address] [address] [place] [address] Business (1) Within 3 to 5 days Comments: Please follow closely with your primary care provider in 3 to 5 days. Please contact her office tomorrow morning to schedule follow-up appointment in regards to right ear pain and right inner ear infection. You were seen and evaluated in the emergency department for right ear pain that started last evening worse today. You were treated with Toradol for pain as well as doxycycline, antibiotic which she will take twice daily over the next 7 days this was sent to [facility] for you. A prescription also for Floxin eardrops was sent to [facility] for you. 10 drops in the right ear daily over the next 7 days which he should lie on the opposite side when placing eardrops and lie there for 5 minutes before standing. Continue Tylenol or ibuprofen as needed for pain follow-up with footwear factory worker if continued right ear pain or discomfort. Information is given for you in regards to local ENT Dr. Guaman. You may return here to the emergency department for any worsening or concerning symptoms. With: Address: When: Joao Guaman [address] [place] [id number] Business (1) Within 3 to 5 days Medication Information: The exam and treatment you received today in the [facility] Emergency Department were for an urgent problem and are not intended as complete care. It is important for you to follow up with a doctor, nurse practitioner, or physician?s delivery driver assistant for ongoing care. If your symptoms become worse or you do not improve as expected and you are unable to reach your usual health care provider, you should return to the Emergency Department, we are available 24 hours a day. For those patients who have received Radiology results, the interpretation of your X-ray as given to you by our Emergency Department physician is only a preliminary report. The Radiologist will review your films and if there is a change in the diagnosis you will be notified by phone. Please make sure you have provided a working phone number so we can reach you if necessary. In the event that you had a lab culture while you were a patient in the Emergency Department, you will be notified by phone if there is a need to change your antibiotic. Please make sure you have provided a working phone number so we can reach you if necessary. [facility] has provided you with a complete list of medications post discharge. Please inform your mail processing equipment mechanic/provider of your visit and for further instruction on these medications. Any specific questions regarding your chronic medications and dosages should be discussed with your primary care physician(s) and/or pharmacist. New Medications GLORIA PEREIRABUS [address], [place] [id number], [phone] doxycycline (doxycycline hyclate 100 mg oral capsule) 100 Milligram Oral 2 times a day for 7 Days. Refills: 0. ofloxacin otic (ofloxacin 0.3% otic solution) 10 Drops Otic every day for 7 Days. Right ear. Refills: 0. Medications to Continue That Have Not Changed Other Medications azithromycin (Zithromax 250 mg oral tablet) 1 packet(s) Oral once. as directed on package labeling. Refills: 0. Visit Information Allergies: Substance Reaction Symptoms Type Comments codeine Drug penicillins Drug Vital Signs: Vitals and Measurements this Visit (last charted value for your 04/16/2020 visit) Vital Signs This Visit Temperature Oral: 37.1 DegC Peripheral Pulse Rate: 86 bpm Respiratory Rate: 18 br/min Systolic Blood Pressure: 118 mmHg Diastolic Blood Pressure: 88 mmHg SpO2: 100 % Oxygen Therapy: Room air Measurements This Visit Height/Length Dosin.000 cm Height/Length Estimated: 168.000 cm Weight Dosin.450 kg Weight Estimated: 88.450 kg Problems List: Problem Onset Comments No Problems found Patient Education Otitis Media, Adult Otitis media occurs when there is inflammation and fluid in the middle ear. Your middle ear is a part of the ear that contains bones for hearing as well as air that helps send sounds to your brain. What are the causes? This condition is caused by a blockage in the eustachian tube. This tube drains fluid from the ear to the back of the nose (nasopharynx). A blockage in this tube can be caused by an object or by swelling (edema) in the tube. Problems that can cause a blockage include: ? A cold or other upper respiratory infection. ? Allergies. ? An irritant, such as tobacco smoke. ? Enlarged adenoids. The adenoids are areas of soft tissue located high in the back of the throat, behind the nose and the roof of the mouth. ? A mass in the nasopharynx. ? Damage to the ear caused by pressure changes (barotrauma). What are the signs or symptoms? Symptoms of this condition include: ? Ear pain. ? A fever. ? Decreased hearing. ? A headache. ? Tiredness (lethargy). ? Fluid leaking from the ear. ? Ringing in the ear. How is this diagnosed? This condition is diagnosed with a physical exam. During the exam your health care provider will use an instrument called an otoscope to look into your ear and check for redness, swelling, and fluid. He or she will also ask about your symptoms. Your health care provider may also order tests, such as: ? A test to check the movement of the eardrum (pneumatic otoscopy). This test is done by squeezing a small amount of air into the ear. ? A test that changes air pressure in the middle ear to check how well the eardrum moves and whether the eustachian tube is working (tympanogram). How is this treated? This condition usually goes away on its own within 3?5 days. But if the condition is caused by a bacteria infection and does not go away own its own, or keeps coming back, your health care provider may: ? Prescribe antibiotic medicines to treat the infection. ? Prescribe or recommend medicines to control pain. Follow these instructions at home: ? Take upfy-dqi-fpokzdw and prescription medicines only as told by your health care provider. ? If you were prescribed an antibiotic medicine, take it as told by your health care provider. Do not stop taking the antibiotic even if you start to feel better. ? Keep all follow-up visits as told by your health care provider. This is important. Contact a health care provider if: ? You have bleeding from your nose. ? There is a lump on your neck. ? You are not getting better in 5 days. ? You feel worse instead of better. Get help right away if: ? You have severe pain that is not controlled with medicine. ? You have swelling, redness, or pain around your ear. ? You have stiffness in your neck. ? A part of your face is paralyzed. ? The bone behind your ear (mastoid) is tender when you touch it. ? You develop a severe headache. Summary ? Otitis media is redness, soreness, and swelling of the middle ear. ? This condition usually goes away on its own within 3?5 days. ? If the problem does not go away in 3?5 days, your health care provider may prescribe or recommend medicines to treat your symptoms. ? If you were prescribed an antibiotic medicine, take it as told by your health care provider. This information is not intended to replace advice given to you by your health care provider. Make sure you discuss any questions you have with your health care provider. Document Released: 04/01/2005 Document Revised: 06/09/2018 Document Reviewed: 06/17/2017 [employer] Patient Education ? 2019 [employer]. Viruses or Bacteria What?s got you sick? Antibiotics only treat bacterial infections. Viral illnesses cannot be treated with antibiotics. When an antibiotic is not prescribed, ask your healthcare professional for tips on how to relieve symptoms and feel better. Usual Cause Illness Viruses Bacteria Antibiotic Needed Cold/Runny Nose NO Bronchitis/Chest Cold (in otherwise healthy children and adults) NO Whooping Cough Yes Flu NO Strep Throat Yes Sore Throat (except strep) NO Fluid in the middle ear (otitis media with effusion) NO Urinary Tract Infection Yes Antibiotics Aren?t Always the Answer www.cdc.gov/getsmart GET SMART Know When Antibiotics Work U.S. Department of Health and Human Services Centers for Disease Control and Prevention March 2014 [facility] CBC AUTO DIFFon 12-28-2019 Basophils (Bld) [#/Vol] 0.2 103/ul Critically high 0.0-0.1 [facility] Comment on above: Performed By: #### C BC #### [facility] [address] [place] [id number] Isaac Ellie Basophils/100 WBC (Bld) 1.5 % Normal 0.2-2.0 [facility] Comment on above: Performed By: #### C BC #### [facility] [address] [place], [place] [address] Isaac Ellie Eosinophils (Bld) [#/Vol] 0.7 103/ul Normal 0.0-0.7 [facility] Comment on above: Performed By: #### C BC #### [facility] [address] [place] [id number] Isaac Ellie Eosinophils/100 WBC (Bld) 6.5 % Normal 0.9-7.0 [facility] Comment on above: Performed By: #### C BC #### [facility] [address] [place] [address] Isaac Ellie Erythrocyte distribution width (RBC) [Ratio] 12.9 % Normal 11.0-15.0 [facility] Comment on above: Performed By: #### C BC #### [facility] [address] [place] [address] Isaac Ellie Hematocrit (Bld) [Volume fraction] 44.0 % Normal 36.0-48.0 [facility] Comment on above: Performed By: #### C BC #### [facility] [address] [place] [address] Isaac Ellie Hemoglobin (Bld) [Mass/Vol] 14.7 g/dL Normal 12.0-16.0 [facility] Comment on above: Performed By: #### C BC #### [facility] [address] [place] [address] Isaac Ellie IG # 0.03 10e3/ul Normal 0.00-0.03 [facility] Comment on above: Performed By: #### C BC #### [facility] [address] [place] [address] Isaac Ellie IG % 0.3 % Normal 0.0-0.5 [facility] Comment on above: Performed By: #### C BC #### [facility] [address] [place] [address] Isaac Ellie Lymphocytes (Bld) [#/Vol] 2.9 103/ul Normal 1.2-3.8 [facility] Comment on above: Performed By: #### C BC #### [facility] [address] [place] [address] Isaac Ellie Lymphocytes/100 WBC (Bld) 26.9 % Normal 20.5-60.0 [facility] Comment on above: Performed By: #### C BC #### [facility] [address] [place] [address] Isaac Ellie MANUAL DIFF REQ NO Normal [facility] Comment on above: Performed By: #### C BC #### [facility] [address] [place] [id number] Isaac Argueta MCH (RBC) [Entitic mass] 31.3 pg Normal 26.7-34.0 [facility] Comment on above: Performed By: #### C BC #### [facility] [address] [place], [place] [id number] Isaac Argueta MCHC (RBC) [Mass/Vol] 33.4 g/dL Normal 29.9-35.2 [facility] Comment on above: Performed By: #### C BC #### [facility] [address] [place], [place] [id number] Isaac Argueta MCV (RBC) [Entitic vol] 93.8 fL Normal 81.0-99.0 [facility] Comment on above: Performed By: #### C BC #### [facility] [address] [place], [place] [phone] Isaac Ellie Monocytes (Bld) [#/Vol] 0.6 103/ul Normal 0.3-0.8 [facility] Comment on above: Performed By: #### C BC #### [facility] [address] [place], [place] [id number] Isaac Argueta Monocytes/100 WBC (Bld) 5.6 % Normal 1.7-12.0 [facility] Comment on above: Performed By: #### C BC #### [facility] [address] [place], [place] [id number] Isaac Ellie Neutrophils (Bld) [#/Vol] 6.3 103/ul Normal 1.4-6.5 [facility] Comment on above: Performed By: #### C BC #### [facility] [address] [place], [place] [id number] Isaac Ellie Neutrophils/100 WBC (Bld) 59.2 % Normal 43.0-75.0 [facility] Comment on above: Performed By: #### C BC #### [facility] [address] [place], [place] [id number] Isaac Ellie Platelet mean volume (Bld) [Entitic vol] 9.4 fL Critically low 9.5-13.5 [facility] Comment on above: Performed By: #### C BC #### [facility] [address] [place] [address] Isaac Argueta Platelets (Bld) [#/Vol] 311 103/ul Normal 150-450 [facility] Comment on above: Performed By: #### C BC #### [facility] [address] [place], [place] [phone] Isaac Argueta RBC (Bld) [#/Vol] 4.69 106/ul Normal 4.20-5.40 [facility] Comment on above: Performed By: #### C BC #### [facility] [address] [place] [address] Isaac Argueta WBC (Bld) [#/Vol] 10.7 103/ul Normal 4.0-11.0 [facility] Comment on above: Performed By: #### C BC #### [facility] [address] [place] [address] Isaac Argueta PREG QUANT HCGon 12-28-2019 HCG QUANT <1.00 Normal [facility] Comment on above: Performed By: #### P REGQNT #### [facility] [address] [place] [address] Isaac Argueta HCG RANGE SEE BELOW Normal [facility] Comment on above: Result Comment: 5-50 0-1 WEEK 40-300 1-2 WEEKS 100-1,000 2-3 WEEKS 500-6,000 3-4 WEEKS 5,000-200,000 1-2 MONTHS 10,000-100,000 2-3 MONTHS 3,000-50,000 2ND TRIMESTER 1,000-50,000 3RD TRIMESTER Performed By: #### P REGQNT #### [facility] [address] [place], [place] [address] Isaac Argueta COVID-19 PCRon 12-22-2019 SARS-CoV-2, CORKY Not Detected Normal Not Detected [facility] Comment on above: Result Comment: This test was developed and its performance characteristics determined by [employer]. This test has not been FDA cleared or approved. This test has been authorized by FDA under an Emergency Use Authorization (EUA). This test is only authorized for the duration of time the declaration that circumstances exist justifying the authorization of the emergency use of in vitro diagnostic tests for detection of SARS-CoV-2 virus and/or diagnosis of COVID-19 infection under section 564(b)(1) of the Act, 21 U.S.C. 360bbb-3(b)(1), unless the authorization is terminated or revoked sooner. When diagnostic testing is negative, the possibility of a false negative result should be considered in the context of a patient's recent exposures and the presence of clinical signs and symptoms consistent with COVID-19. An individual without symptoms of COVID-19 and who is not shedding SARS-CoV-2 virus would expect to have a negative (not detected) result in this assay. Performed By: #### C VDPCR, CVDSTAT #### [facility] [address] [place] [id number] Isaac Argueta PRIORITY COVID PROCESSINGon 12-22-2019 Comment Comment Normal [facility] Comment on above: Result Comment: Rece ived Performed By: #### C VDPCR, CVDSTAT #### [facility] [address] [place] [id number] Isaac Argueta US PELVIS AND TRANSVAGon US PELVIS AND TRANSVAG EXAM:US PELVIS AND TRANSVAG INDICATION: Irregular periods COMPARISON: Renal ultrasound on 03/15/2017, pelvic ultrasound on 10/13/2017 TECHNIQUE: Transabdominal and transvaginal ultrasound of the pelvis. FINDINGS: The uterus is anteverted. The uterus measures 8.2 x 3.6 x 5.2 cm. The endometrial thickness measures 5 mm. There is an intrauterine device in place. The prongs are in appropriate position. The left ovary could not be visualized. The right ovary measures 2.5 x 3.8 x 2.5 cm. There is a 1.5 x 1.3 x 1.4 cm isoechoic area in the right ovary, best seen on image 56 without any discrete border. No free fluid is seen in the cul-de-sac. IMPRESSION: IUD in appropriate position. The left ovary could not be visualized. 1.5 cm isoechoic area in the right ovary without any discrete border. This may represent a focal area of inhomogeneous ovarian tissue versus a teratoma (although less likely). Recommend a short-term followup in 6-8 weeks to document stability/resolution. Electronically authenticated by: ROSANGELA OCHOA Date: 2019-11-27 10:54 Normal [facility] PAP ACOG PANEL 2: 30 to 65on 09-28-2019 Age Gdln ACOG Testing 30-65 Normal [facility] Comment on above: Performed By: #### [id number] #### [facility] [address] [place] [address] Isaac Argueta DIAGNOSIS: Comment Normal [facility] Comment on above: Result Comment: NEGA TIVE FOR INTRAEPITHELIAL LESION OR MALIGNANCY. Performed at: WB Performed By: #### [id number] #### [facility] [address] [place] [address] Isaac Argueta HPV Aptima Negative Normal Negative [facility] Comment on above: Result Comment: This test was developed and its performance characteristics determined by [employer]. It has not been cleared or approved by the Food and Drug Administration. This nucleic acid amplification test detects fourteen high-risk HPV types (16,18,31,33,35,39,45,51,52,56,58,59,66,68) without differentiation. Performed at: =G Performed By: #### [id number] #### [facility] [address] [place] [address] Isaac Argueta Methodology: Comment Normal [facility] Comment on above: Result Comment: This liquid based SurePath(R) pap test was screened with the assistance of an image guided system. Performed at: WB Performed By: #### 4 [id number] #### [facility] [address] [place] [address] Isaac Argueta Note: Comment Normal [facility] Comment on above: Result Comment: The Pap smear is a screening test designed to aid in the detection of premalignant and malignant conditions of the uterine cervix. It is not a diagnostic procedure and should not be used as the sole means of detecting cervical cancer. Both false-positive and false-negative reports do occur. . Performed at: WB Performed By: #### [id number] #### [facility] [address] [place], [place] [address] Isaac Ellie Performed by: Comment Normal [facility] Comment on above: Result Comment: Lobo Frazier, Gold Miner (ASCP) Performed at: WB Performed By: #### [id number] #### [facility] [address] [place], [place] [address] Isaac Ellie Specimen adequacy: Comment Normal [facility] Comment on above: Result Comment: Sati sfactory for evaluation. Endocervical and/or squamous metaplastic cells (endocervical component) are present. Areas of partially obscuring inflammatory exudate are present. Performed at: WB Performed By: #### [id number] #### [facility] [address] [place], [place] [address] Isaac Ellie . . Normal [facility] Comment on above: Result Comment: Perf ormed at: WB Performed By: #### 4 [id number] #### [facility] [address] [place] [id number] Isaacrenny Hicksen Vital Signs Date Time Vital Sign Value Performing Clinician Faci lity 08-29-2024 09:41-0500 Body mass index (BMI) [Ratio] 36.48 kg/m2 Myesha RÍOS Work Phone: [facility] 08-29-2024 09:41-0500 Body weight 102.51 kg Myesha RÍOS Work Phone: [facility] 08-29-2024 09:41-0500 Diastolic blood pressure 70 mm[Hg] Myesha RÍOS Work Phone: [facility] 08-29-2024 09:41-0500 Systolic blood pressure 120 mm[Hg] Myesha RÍOS Work Phone: [facility] 07-23-2024 12:35-0500 Body height 167.6 cm Shanika Alejandro ENERGY ADMINISTRATOR Work Phone: [facility] 07-23-2024 12:35-0500 Body mass index (BMI) [Ratio] 35.83 kg/m2 Shanika Alejandro ENERGY ADMINISTRATOR Work Phone: [facility] 07-23-2024 12:35-0500 Body weight 100.7 kg Shanika Alejandro ENERGY ADMINISTRATOR Work Phone: [facility] 07-23-2024 12:35-0500 Diastolic blood pressure 76 mm[Hg] Shanika Maritzaenburg ENERGY ADMINISTRATOR Work Phone: [facility] 07-23-2024 12:35-0500 Heart rate 61 /min Shanika Maritzaenburg ENERGY ADMINISTRATOR Work Phone: [facility] 07-23-2024 12:35-0500 Respiratory rate 18 /min Shanika Maritzaenburg ENERGY ADMINISTRATOR Work Phone: [facility] 07-23-2024 12:35-0500 SaO2% (BldA) [Mass fraction] 98 % Shanika Benitezburg ENERGY ADMINISTRATOR Work Phone: [facility] 07-23-2024 12:35-0500 Systolic blood pressure 122 mm[Hg] Shanika Maritzaenburg ENERGY ADMINISTRATOR Work Phone: [facility] 05-10-2024 09:33-0400 Body height 167.6 cm Emma Stanton MD Work Phone: [facility] 05-10-2024 09:33-0400 Body mass index (BMI) [Ratio] 35.02 kg/m2 Emma Stanton MD Work Phone: [facility] 05-10-2024 09:33-0400 Body weight 98.43 kg Emma Stanton MD Work Phone: [facility] 05-10-2024 09:33-0400 Diastolic blood pressure 72 mm[Hg] Emma Stanton MD Work Phone: [facility] 05-10-2024 09:33-0400 Heart rate 74 /min Emma Stanton MD Work Phone: [facility] 05-10-2024 09:33-0400 Respiratory rate 20 /min Emma Stanton MD Work Phone: [facility] 05-10-2024 09:33-0400 SaO2% (BldA) [Mass fraction] 99 % Emma Stanton MD Work Phone: [facility] 05-10-2024 09:33-0400 Systolic blood pressure 126 mm[Hg] Emma Stanton MD Work Phone: [facility] Encounters Encounter Date Encounter Type Care Provider Facility Start: 08-29-2024 End: 08-29-2024 Bamboo flowsheet Myesha RÍOS Work Phone: [facility] Start: 08-29-2024 End: 08-29-2024 Bamboo flowsheet Myesha Ta PA Work Phone: [facility] Start: 08-29-2024 End: 08-29-2024 Clinisync Result Encounter Generic External Data Provider [facility] External Department Unsolicited Start: 08-29-2024 End: 08-29-2024 Office outpatient visit 15 minutes Myesha RÍOS Work Phone: [facility] Comment on above: Cramp, abdominal; Menorrhagia with regular cycle; History of ovarian cyst Start: 08-29-2024 End: 08-29-2024 ambulatory MYESHA TA Not Available Start: 08-10-2024 End: 08-10-2024 ambulatory [facility] Start: 07-23-2024 End: 07-23-2024 Bamboo flowsheet Shanika A Hackenburg ENERGY ADMINISTRATOR Work Phone: [facility] Start: 07-23-2024 End: 07-23-2024 Bamboo flowsheet Shanika A Hackenburg ENERGY ADMINISTRATOR Work Phone: [facility] Start: 07-23-2024 End: 07-23-2024 ambulatory SHANIKA A HACKENBURG Not Available Start: 07-23-2024 End: 07-23-2024 Office outpatient visit 15 minutes Shanika A Hackenburg ENERGY ADMINISTRATOR Work Phone: [facility] Comment on above: Acute diffuse otitis externa of left ear (Primary Dx) Start: 06-15-2024 End: 06-15-2024 ambulatory [facility] Start: 05-10-2024 End: 05-10-2024 Bamboo flowsheet Emma Stanton MD Work Phone: [facility] Start: 05-10-2024 End: 05-10-2024 Bamboo flowsheet Emma Stanton MD Work Phone: [facility] Start: 05-10-2024 End: 05-10-2024 Office outpatient visit 15 minutes Emma Stanton MD Work Phone: [facility] Comment on above: Acute bronchitis due to other specified organisms (Primary Dx) Start: 05-10-2024 End: 05-10-2024 ambulatory EMMA STANTON Not Available Start: 04-09-2024 End: 04-09-2024 [facility] Start: 03-23-2024 End: 03-23-2024 [facility] Start: 02-17-2024 End: 02-17-2024 [facility] Start: 01-20-2024 End: 01-20-2024 ambulatory EMMA STANTON Not Available Start: 01-18-2024 End: 01-18-2024 ambulatory [facility] Start: 10-10-2023 End: 10-10-2023 ambulatory RUPERTO SHIPMAN Not Available Start: 09-19-2023 End: 09-19-2023 ambulatory RUPERTO SHIPMAN Not Available Start: 12-28-2019 End: 12-28-2019 Patient encounter procedure [facility] Facility:H1 Start: 12-21-2019 End: 12-22-2019 Patient encounter procedure [facility] Facility:H1 Start: 11-27-2019 End: 11-28-2019 Patient encounter procedure [facility] Facility:H1 Start: 09-24-2019 End: 09-24-2019 Patient encounter procedure [facility] Facility: Procedures Date Procedure Procedure Detail Performing Clinician Start: 08-29-2024 ALL CBC WITH AUTO DIFF Myesha RÍOS Work Phone: Start: 08-29-2024 Urnls dip stick/tabl et rgnt non-auto w/o micrscp Myesha RÍOS Work Phone: Plan of Treatment Date Care Activity Detail Author Start: 01-07-2025 Influenza vaccination Influenza Vacc ine (#1) [facility] Comment on above: Postponed from 03/11 (Patient Refused) Start: 09-27-2024 End: 09-27-2024 Patient encounter procedure 09/27/2024 9:10 AM EDT Office Visit [facility] [address] [place] [address] Dom Shah DO [address] [place], [place] [address] [facility] Start: 08-29-2024 End: 08-29-2025 aPTT in Blood by Coagulation assay APTT Lab Routine Menorrhagia with regular cycle Expected: 08/29/2024 (Approximate), Expires: 08/29/2025 [facility] Comment on above: Expected: 08/29/2024 (Approximate), Expires: 08/29/2025 Start: 08-29-2024 End: 08-29-2025 US Pelvis US Pelvis w/ TV Imaging Routine Cramp, abdominal Menorrhagia with regular cycle History of ovarian cyst Expected: 08/29/2024, Expires: 08/29/2025 [facility] Comment on above: Expected: 08/29/2024 , Expires: 08/29/2025 Start: 08-29-2024 End: 08-29-2024 Patient encounter procedure 08/29/2024 9:40 AM EST Office Visit [facility] [address] [place] [address] Myesha Ta PA [address] [place] [address] [facility] Comment on above: Arrived Start: 05-10-2024 End: 05-10-2024 Patient encounter procedure 05/10/2024 9:40 AM EDT Office Visit [facility] [address] [place] [address] Emma Stanton MD [address] [place] [address] Arrived [facility] Comment on above: Arrived Start: 03-11-2024 Influenza vaccination Influenza Vacc ine (#1) [facility] Start: 2017 Screening for malign ant neoplasm of cervix [facility] Start: 2008 Screening for malign ant neoplasm of cervix Pap Smear [facility] CBC W Auto Different ial panel - Blood CBC and differential Lab Routine Menorrhagia with regular cycle Ordered: 08/29/2024 [facility] Work Phone: Comment on above: Ordered: 08/29/2024 hCG, quantitative, hCG, quantitative, Lab Routine Menorrhagia with regular cycle Ordered: 08/29/2024 [facility] Comment on above: Ordered: 08/29/2024 Hemoglobin A1c/Hemoglobin.total in Blood Hemoglobin A1c Lab Routine Menorrhagia with regular cycle Ordered: 08/29/2024 [facility] Comment on above: Ordered: 08/29/2024 Prothrombin time (PT ) in Blood by Coagulation assay Protime-INR Lab Routine Menorrhagia with regular cycle Ordered: 08/29/2024 [facility] Comment on above: Ordered: 08/29/2024 Thyrotropin [Units/volume] in Serum or Plasma TSH Lab Routine Menorrhagia with regular cycle Ordered: 08/29/2024 [facility] Comment on above: Ordered: 08/29/2024 Thyroxine (T4) free [Mass/volume] in Serum or Plasma T4, free Lab Routine Menorrhagia with regular cycle Ordered: 08/29/2024 [facility] Comment on above: Ordered: 08/29/2024 Immunizations Immunization Date Immunization Notes Care Provider Fa cili 02-21-2024 tetanus toxoid, redu priyanka diphtheria toxoid, and acellular pertussis vaccine, adsorbed Emma Stanton MD Work Phone: [facility] 04-11-2023 tuberculin skin test ; purified protein derivative solution, intradermal Emma Stanton MD Work Phone: [facility] Work Phone: Payers Date Payer Category Payer Private Health Insurance [facility] [id number] 1987 Unknown [id number] [id number]. 2.593 1987 Unknown [id number] 2.16.840.1.519383.3.579. 2.593 1987 Unknown [id number] 2.16.840.1.532971.3.579. 2.593 1987 Unknown [id number] 2.16.840.1.474981.3.579. 2.593 1987 Unknown [id number] 2.16.840.1.613234.3.579. 2.1285 1987 Unknown [id number] 2.16.840.1.115120.3.579. 2.1285 1987 Unknown [id number] 2.16.840.1.582169.3.579. 2.1285 1987 Unknown [id number] 2.16.840.1.154717.3.579. 2.1285 1987 Unknown [id number] 2.16.840.1.150880.3.579. 2.1285 1987 Unknown [id number] 2.16.840.1.959516.3.579. 2.1285 1987 Unknown [id number] 2.16.840.1.795275.3.579. 2.1259 1987 Unknown [id number] 2.16.840.1.890027.3.579. 2.1259 1987 Unknown [id number] 2.16.840.1.694695.3.579. 2.1259 1987 Unknown [id number] 2.16.840.1.640038.3.579. 2.1259 1987 Unknown [id number] 2.16.840.1.767674.3.579. 2.1259 1987 Unknown [id number] 2.16.840.1.431762.3.579. 2.1259 1959 Private Health Insurance [id number] Social History Date Type Detail Facility Start: 01-20-2024 Tobacco smoking status [facility] Ex-smoke r [facility] End: 03-11-2022 History of tobacco use Current smoker [facility] End: 03-11-2022 History of tobacco use Cigarette Smoker [facility] Start: 01-20-2024 Tobacco use and exposure Smoke less tobacco non-user [facility] Start: 01-20-2024 End: 08-29-2024 Alcoholic beverage intake Ex-drinker (finding) [facility] Start: 07-28-2023 End: 09-19-2023 History of Social function [facility] Start: 07-28-2023 End: 09-19-2023 Humiliation, Afraid, Rape, and Kick questionnaire [HARK] [facility] Within the last year , have you been afraid of your partner or ex-partner? No [facility] In a typical week, h ow many times do you talk on the telephone with family, friends, or neighbors? Patient declined [facility] Are you now , , , , never or living with a partner? [facility] How often to you hav e a drink containing alcohol? Monthly or less [facility] How many standard dr inks containing alcohol do you have on a typical day? 1 or 2 [facility] How often do you hav e 6 or more drinks on 1 occasion? Never [facility] Do you feel stress - tense, restless, nervous, or anxious, or unable to sleep at night because your mind is troubled all the time - these days [OSQ] Rather much [facility] Start: 02-22-2023 Tobacco Comment Smokes 10-19 c igs per day [facility] Start: 1985 Sex assigned at Not on file [facility] History of Present illness Narrative 08-29-2024 KHUSHBU Enrique - 08/29/2024 9:40 AM EST Note Date & Type Note Facility 08-29-2024 History of Presen t illness Narrative Reason for Appointment: Patient ID: Svitlana Oseguera is a 39 y.o. female who presents for Dysmenorrhea Patient presents today for Cramping. MEDICATIONS Current Outpatient Medications Medication Instructions acetaminophen (TYLENOL) 1,000 mg, Daily temazepam (RESTORIL) 15 mg, Nightly PRN Vortioxetine HBr 10 mg, Daily RT ALLERGIES Allergies Allergen Reactions Cefadroxil Hives Penicillins Hives PROBLEMS Active Ambulatory Problems Diagnosis Date Noted Conductive hearing loss 01/05/2023 Depression ([facility]) 01/05/2023 Insomnia 01/05/2023 Nephrosclerosis ([facility]/HCC) 01/05/2023 Pain in both upper extremities 02/22/2023 Generalized anxiety disorder (CMS/HCC) 01/18/2024 Moderate episode of recurrent major depressive disorder (CMS/HCC) 01/18/2024 Resolved Ambulatory Problems Diagnosis Date Noted No Resolved Ambulatory Problems Past Medical History: Diagnosis Date Allergies Anxiety Cholesteatoma H/O tubal ligation History of medical problems 08/2016 Wrist fracture, left HISTORY PAST MEDICAL HISTORY SOCIAL HISTORY Past Medical History: Diagnosis Date Allergies Anxiety Cholesteatoma Depression ([facility]) H/O tubal ligation History of medical problems 08/2016 perforated left TM Wrist fracture, left age 18 Social History Tobacco Use Smoking status: Former Current packs/day: 0.00 Types: Cigarettes Quit date: 03/11/2022 Years since quittin.4 Smokeless tobacco: Never Tobacco comments: Smokes 10-19 cigs per day Substance Use Topics Alcohol use: Not Currently Drug use: Never FAMILY HISTORY Family History Problem Relation Name Age of Onset Cancer Mother Gerri Skin cancer Mother Gerri COPD Mother Gerri Hearing loss Father Sal Heart disease Father Sal SURGICAL HISTORY Past Surgical History: Procedure Laterality Date ADENOIDECTOMY 2010 DILATION AND CURETTAGE OF UTERUS 06/27/2020 INNER EAR SURGERY Right 2006 cholesteatoma TUBAL LIGATION 2019 TYMPANOSTOMY Left 2002 TYMPANOSTOMY TUBE PLACEMENT Right 01/23/2021 REVIEW OF SYSTEMS Review of Systems: Review of Systems Constitutional: Negative. HENT: Negative. Eyes: Negative. Respiratory: Negative. Cardiovascular: Negative. Gastrointestinal: Negative. Genitourinary: Negative. Musculoskeletal: Negative. Skin: Negative. Neurological: Negative. All other systems reviewed and are negative. Hematological: Negative. Endocrine: Negative. Allergic/Immunologic: Negative. OBJECTIVE Objective: Physical Exam Constitutional: Appearance: Normal appearance. She is well-developed and normal weight. HENT: Head: Normocephalic. Cardiovascular: Rate and Rhythm: Normal rate and regular rhythm. Pulses: Normal pulses. Pulmonary: Effort: Pulmonary effort is normal. Breath sounds: Normal breath sounds. Abdominal: General: Bowel sounds are normal. There is no distension. Palpations: Abdomen is soft. Tenderness: There is abdominal tenderness. There is no guarding or rebound. Comments: Right lower quadrant Musculoskeletal: General: No swelling. Normal range of motion. Right lower leg: No edema. Left lower leg: No edema. Neurological: General: No focal deficit present. Mental Status: She is alert and oriented to person, place, and time. Skin: General: Skin is warm and dry. Psychiatric: Mood and Affect: Mood normal. Behavior: Behavior normal. Thought Content: Thought content normal. Judgment: Judgment normal. Vitals and nursing note reviewed. Exam conducted with a teletype installer present. Vitals: Estimated body mass index is 36.48 kg/m as calculated from the following: Height as of 07/23/24: 5' 6 . Weight as of this encounter: 226 lb. BP: 120/70 Patient's last menstrual period was 08/27/2024. ASSESSMENT & PLAN ICD-10-CM 1. Cramp, abdominal R10.9 POCT urinalysis dipstick manually resulted 2. Menorrhagia with regular cycle N92.0 3. History of ovarian cyst Z87.42 Patient presents today for abdominal cramping starting on Tuesday. Patient did have this pain previously when she did have a Cyst. Pain is located right side only radiating from back to lower front. Patient does take Tylenol to help with this pain. Urine dip obtained and will order labs and imaging to have completed. Patient has history of saplingectomy with cyst removal in past. We will obtain results and follow up with patient as scheduled. Patient tenderness to RLW, discussed possibility of cyst vs stone vs appendix but history correlates to probable ovarian cyst. Pt advised to go to ER if fever or symptoms worsen. She states pain is similar to previous cyst pain and has had some clotting of blood passing . Documented by April Hollingsworth LPN on behalf of: KHUSHBU Enrique documented in this encounter [facility] History of Present illness Narrative 07-23-2024 Shanika Alejandro, GUS - 07/23/2024 12:30 PM EST Note Date & Type Note Facility 07-23-2024 History of Presen t illness Narrative Images from the original note were not included. Svitlana Oseguera is a 39 y.o. female presents with chief complaint of Earache HPI: Earache There is pain in the left ear. This is a recurrent problem. The current episode started yesterday. The problem occurs constantly. The problem has been waxing and waning. There has been no fever. The pain is at a severity of 6/10. Associated symptoms include ear discharge, headaches and hearing loss. Pertinent negatives include no abdominal pain, coughing, diarrhea, neck pain, rash, rhinorrhea, sore throat or vomiting. History of Present Illness The patient presents for evaluation of right ear pain. She reports a swollen ear canal, accompanied by severe pain on the right side of her head. She expresses a desire for her ear to drain. Additionally, she notes the presence of green and yellow nasal discharge. She is not experiencing any congestion or cough but mentions that her home environment is excessively dry. She plans to use saline and water from her humidifier to alleviate this dryness. 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 The second set of tubes was too large, resulting in permanent perforations. This year, she underwent two major microsurgeries, including a half mastoidectomy and eardrum replacement. Despite these interventions, her ears have not responded well, leading to a severe infection and the placement of a tube in her right ear. The subsequent removal of the tube resulted in a permanent perforation. Her left ear does not exhibit similar issues. She has been dealing with these ear-related problems since she was between 6 months and 4 years old. She also reports a family history of ear issues. She has previously consulted an ENT specialist but declined further examination of her left ear. She prefers Ofloxacin eardrops for treatment. FAMILY HISTORY The patient reports a family history of ear infections and ear issues, mentioning that they run in the family. SUBJECTIVE: MEDICATIONS: Current Outpatient Medications Medication Instructions acetaminophen (TYLENOL) 1,000 mg, Daily azithromycin (Zithromax) 250 MG tablet 2 tab po every day x1 day then 1 tab po every day x4 days temazepam (RESTORIL) 7.5 mg, Nightly PRN Vortioxetine HBr (Trintellix) 5 MG tablet I have reviewed and reconciled the history and medication list with the patient today. REVIEW OF SYMPTOMS: Review of Systems HENT: Positive for ear discharge, ear pain and hearing loss. Negative for rhinorrhea and sore throat. Respiratory: Negative for cough. Gastrointestinal: Negative for abdominal pain, diarrhea and vomiting. Musculoskeletal: Negative for neck pain. Skin: Negative for rash. Neurological: Positive for headaches. OBJECTIVE: Visit Vitals BP 122/76 Pulse 61 Resp 18 Ht 5' 6 Wt 222 lb SpO2 98% BMI 35.83 kg/m Smoking Status Former BSA 2.17 m Physical Exam Vitals and nursing note reviewed. Constitutional: Appearance: Normal appearance. HENT: Head: Normocephalic and atraumatic. Right Ear: Tympanic membrane normal. Left Ear: Tympanic membrane normal. Drainage, swelling and tenderness present. Nose: Congestion present. Right Sinus: Frontal sinus tenderness present. Left Sinus: Frontal sinus tenderness present. Mouth/Throat: Mouth: Mucous membranes are moist. Pharynx: Posterior oropharyngeal erythema present. Tonsils: No tonsillar exudate. Cardiovascular: Rate and Rhythm: Normal rate and regular rhythm. Pulses: Normal pulses. Heart sounds: Normal heart sounds. Pulmonary: Effort: Pulmonary effort is normal. Breath sounds: Normal breath sounds. Musculoskeletal: Cervical back: Normal range of motion and neck supple. Skin: General: Skin is warm and dry. Capillary Refill: Capillary refill takes less than 2 seconds. Neurological: Mental Status: She is alert and oriented to person, place, and time. ASSESSMENT AND PLAN: Assessment/Plan Diagnoses and all orders for this visit: Acute diffuse otitis externa of left ear - ofloxacin (Floxin) 0.3 % otic solution; Administer 10 drops into affected ear(s) Daily for 7 days Assessment & Plan 1. Right otitis externa. The patient reports a swollen ear canal, significant pain on the right side of the head, and drainage of green and yellow discharge from the nose. Examination confirmed the presence of a painful, swollen ear canal. Ofloxacin eardrops will be prescribed to manage the infection. She is advised to use saline and maintain adequate hydration to alleviate symptoms. documented in this encounter [facility] History of Present illness Narrative 05-10-2024 Emma Stanton MD - 05/10/2024 9:40 AM EDT Note Date & Type Note Facility 05-10-2024 History of Presen t illness Narrative Svitlana Oseguera is a 39 y.o. female presents with chief complaint of Cough, Nasal Congestion, and Fever HPI: HPI History of Present Illness The patient presents for evaluation of bronchitis. She began experiencing symptoms on Tuesday, which have progressively worsened. She reports a sensation of heaviness in her chest. She has a known allergy to all penicillin-based medications, but can tolerate Zithromax. She does not require a work note as she is not currently employed. ALLERGIES She is allergic to PENICILLIN. SUBJECTIVE: MEDICATIONS: Current Outpatient Medications Medication Instructions acetaminophen (TYLENOL) 1,000 mg, Daily temazepam (RESTORIL) 7.5 mg, Nightly PRN Vortioxetine HBr (Trintellix) 5 MG tablet ALLERGIES: Allergies Allergen Reactions Cefadroxil Hives Penicillins Hives SURGICAL HISTORY: Past Surgical History: Procedure Laterality Date ADENOIDECTOMY 2010 DILATION AND CURETTAGE OF UTERUS 06/27/2020 INNER EAR SURGERY Right 2005 cholesteatoma TUBAL LIGATION 2020 TYMPANOSTOMY Left 2002 TYMPANOSTOMY TUBE PLACEMENT Right 01/23/2021 FAMILY HISTORY: Family History Problem Relation Name Age of Onset Cancer Mother Gerri Skin cancer Mother Gerri COPD Mother Gerri Hearing loss Father Sal Heart disease Father Sal SOCIAL HISTORY: Social History Tobacco Use Smoking status: Former Current packs/day: 0.00 Types: Cigarettes Quit date: 03/11/2022 Years since quittin.1 Smokeless tobacco: Never Tobacco comments: Smokes 10-19 cigs per day Substance Use Topics Alcohol use: Not Currently Drug use: Never Depression: At risk (09/19/2023) PHQ-2 PHQ-2 Score: 6 REVIEW OF SYMPTOMS: Review of Systems Respiratory: Negative. Cardiovascular: Negative. OBJECTIVE: Visit Vitals BP 126/72 (BP Location: Left arm, Patient Position: Sitting, BP Cuff Size: Large adult) Pulse 74 Resp 20 Ht 5' 6 Wt 217 lb SpO2 99% BMI 35.02 kg/m Smoking Status Former BSA 2.14 m Physical Exam Constitutional: Appearance: Normal appearance. She is normal weight. HENT: Head: Normocephalic and atraumatic. Right Ear: Tympanic membrane and ear canal normal. Left Ear: Tympanic membrane and ear canal normal. Nose: Congestion and rhinorrhea present. Mouth/Throat: Mouth: Mucous membranes are moist. Pharynx: Oropharyngeal exudate present. Eyes: Pupils: Pupils are equal, round, and reactive to light. Cardiovascular: Rate and Rhythm: Normal rate and regular rhythm. Heart sounds: No murmur heard. Pulmonary: Effort: Pulmonary effort is normal. Breath sounds: No wheezing or rhonchi. Comments: Bronchial breath sounds Musculoskeletal: General: No swelling. Cervical back: Normal range of motion and neck supple. Right lower leg: No edema. Left lower leg: No edema. Lymphadenopathy: Cervical: No cervical adenopathy. Skin: General: Skin is warm and dry. Findings: No rash. Neurological: Mental Status: She is oriented to person, place, and time. Sensory: No sensory deficit. Gait: Gait normal. Psychiatric: Mood and Affect: Mood normal. Thought Content: Thought content normal. Judgment: Judgment normal. ASSESSMENT AND PLAN: Assessment/Plan Problem List Items Addressed This Visit None Visit Diagnoses Acute bronchitis due to other specified organisms - Primary Relevant Medications azithromycin (Zithromax) 250 MG tablet Apsec Assessment & Plan 1. Bronchitis. Symptoms began on Tuesday and have worsened. The patient reports a heavy feeling in the chest. Examination revealed no wheezing, suggesting bronchitis. A 5-day course of Zithromax has been prescribed, with effects lasting for 10 days. She is advised to maintain good nutrition, avoid alcohol, and take short walks to prevent pneumonia. documented in this encounter [facility] Evaluation note Note Date & Type Note Facility Evaluation note Diagnosis Acute bronchitis due to other specified organisms- Primary documented in this encounter [facility] Evaluation note Note Date & Type Note Facility Evaluation note Diagnosis Acute diffuse otitis externa of left ear- Primary documented in this encounter [facility] Evaluation note Note Date & Type Note Facility Evaluation note Diagnosis Cramp, abdominal Abdominal pain, unspecified site Menorrhagia with regular cycle History of ovarian cyst Personal history of other genital system and obstetric disorders documented in this encounter [facility] Summary Purpose Family History No Family History Records FoundNo Family History Records FoundNo Family History Records FoundNo Family History Records Found Advance Directives No Advanced Directives Records FoundNo Advanced Directives Records FoundNo Advanced Directives Records FoundNo Advanced Directives Records Found Procedure Findings Note OPERATIVE NOTE ADDENDUM ADDE NDUM TO PRIMARY NOTE PER DR. SHAH 01-13-20 OPERATION DATE: Please note that a right ovarian cyst was identified and monopolar cautery scissors was used to perform cystotomy. Clear fluid was expressed. Excellent hemostasis was obtained. This was performed without difficulty. Note [facility] [place], [place] NAME: SVITLANA OSEGUERA Abraham DATE OF : MEDICAL REC#: [id number] PHOTOGRAPHIC DEVELOPER AND PRINTER: [id number] ADMIT DATE: 12/28/2019 06:09:00 DIRECTOR OF ADVERTISING SALES DATE: 01/07/2020 08:00 DICTATING PHYSICIAN: DOM SHAH DICTATION DATE: 01/06/2020 14:00 OPERATIVE NOTE OPERATION DATE: 12-28-19 ANESTHETIC: General. PREOPERATIVE DIAGNOSIS: 1. Pelvic pain. 2. Dysmenorrhea. 3. Abnormal menstrual periods. 4. Desires permanent sterilization. 5. Multiparity. 6. IUD in place. POSTOPERATIVE DIAGNOSIS:Same as above. PROCEDURE NAME:IUD removal, endometrial Giovana, bilateral tubal ligation with Filshie clips, right ovarian cystotomy. PROCEDURE: The patient was taken back to the Operating Room where she was given general anesthesia without difficulty. She was then prepped and draped in the normal sterile fashion after being placed in a dorsal lithotomy position. A wet sponge stick was placed into the patient's vagina. Attention was then turned to the patien (more content not included)... Additional Source Comments INFORMATION SOURCE (unrecogn ized section and content) DATE CREATED AUTHOR 01/31/2020 [facility] DATE CREATED AUTHOR AUTHOR'S ORGANIZ ATION 05/08/2020 [facility] DATE CREATED AUTHOR AUTHOR'S ORGANIZ ATION 08/12/2024 [facility] DATE CREATED AUTHOR AUTHOR'S ORGANIZ ATION 08/31/2024 [facility] EPIC Care Teams (unrecognized sec tion and content) Retail Administrative Assistant Relationship Specialty Start Date End Date Emma Stanton MD [address] [facility] [place] [address] PCP - General Family Medicine 01/04/23 Retail Administrative Assistant Relationship Specialty Start Date End Date Emma Stanton MD [address] [facility] [place] [address] PCP - General Family Medicine 01/04/23 Retail Administrative Assistant Relationship Specialty Start Date End Date Emma Stanton MD [address] [facility] [place] [address] PCP - General Family Medicine 01/04/23 Retail Administrative Assistant Relationship Specialty Start Date End Date Emma Stanton MD [address] [facility] [place] [address] PCP - General Family Medicine 01/04/23 Retail Administrative Assistant Relationship Specialty Start Date End Date Emma Stanton MD [address] [facility] [place] [address] PCP - General Family Medicine 01/04/23 Retail Administrative Assistant Relationship Specialty Start Date End Date Emma Stanton MD [address] [facility] [place] [address] PCP - General Family Medicine 01/04/23 Reason for Visit (unrecogniz ed section and content) Reason Comments Cough Nasal Congestion Fever Reason Comments Earache Reason Comments Dysmenorrhea FOR RECORDS PERTAINING TO PATIENTS WHO ARE OR HAVE BEEN ENROLLED IN A CHEMICAL DEPENDENCY/SUBSTANCEABUSE PROGRAM, SOME INFORMATION MAY BE OMITTED. This clinical summary was aggregated from multiple sources. Caution should be exercised in using it in the provision of clinical care. This summary normalizes information from multiple sources, and as a consequence, information in this document may materially change the coding, format and clinical context of patient data. In addition, data may be omitted in some cases. CLINICAL DECISIONS SHOULD BE BASED ON THE PRIMARY CLINICAL RECORDS. [facility]. provides no warranty or guarantee of the accuracy or completeness of information in this document.
== END 2024-09-12 14:58 | disposition home or self-care (01) ==
LOC: US 14:57
PROVIDERS: Family Provider Family Medicine; PCP Family Medicine; Visit Provider Physician Assistant
DX: R10.9 Unspecified abdominal pain (principal); N92.0 Excessive and frequent menstruation with regular cycle; Z87.42 Personal history of other diseases of the female genital tract
CPT/HCPCS: 76830; 76856

== ENCOUNTER 2024-10-16 20:27 | Outpatient (REF) | payer OTHER, SELFPAY ==
--- OUTSIDE RECORDS SUMMARY | 2024-10-16 20:33 | XMS_ITS | CCD ---
Author Organization [facility] Care Team Providers Care Brooch Maker Novelty Name Role Phone ALYSSA, DOM Admitting Unavailable ALYSSA, DOM Attending Unavailable ALYSSA, DOM Consulting Unavailable ALYSSA, DOM Admitting Unavailable ALYSSA, DOM Attending Unavailable MAXIMINO, EMMA Primary Care Unavailable ALYSSA, DOM Consulting Unavailable AHMED, ROSANGELA Consulting Unavailable ALYSSA, DOM Admitting Unavailable ALYSSA, DOM Attending Unavailable MAXIMINO, EMMA Primary Care Unavailable ALYSSA, DOM Consulting Unavailable SONIA VAZQUEZ Consulting Unavailable ALYSSA, DOM Admitting Unavailable ALYSSA, DOM Attending Unavailable MAXIMINO, EMMA Consulting Unavailable ALYSSA, DOM Consulting Unavailable Maximino , Emma Negrete Primary Care Provider [phone] MYESHA TA Attending Unavailable ALYSSA, DOM Attending Unavailable RUPERTO SHIPMAN Attending Unavailable MAXIMINO, EMMA F Attending Unavailable MAXIMINO, EMMA F Attending Unavailable BORIS, SHANIKA Ulloa Attending Unavailab CASIMIRO Andrews Attending Unavailable HEMELLIE TILLEY Referring Unavailable HEMMER, ELLIE Primary Care Unavailable CASIMIRO HARO Attending Unavailable HEMMER, ELLIE Referring Unavailable MAXIMINO, EMMA F Primary Care Unavailable TAHIRCASIMIRO Attending Unavailable MAXIMINO, EMMA F Referring Unavailable MAXIMINO, EMMA F Primary Care Unavailable CASIMIRO HARO Attending Unavailable MAXIMINO, EMMA F Referring Unavailable MAXIMINO, EMMA F Primary Care Unavailable CASIMIRO HARO Attending Unavailable MAXIMINO, EMMA F Referring Unavailable MAXIMINO, EMMA F Primary Care Unavailable TAHIRCASIMIRO Attending Unavailable MAXIMINO, EMMA F Referring Unavailable MAXIMINO, EMMA F Primary Care Unavailable TAHIRCASIMIRO Attending Unavailable MAXIMINO, EMMA F Referring Unavailable MAXIMINO, EMMA F Primary Care Unavailable Allergies Allergy Classification Reported Allergen(s) Allergy Type Date of Onset Reaction(s) Facility (1 source) Codeine Drug Allergy 3 [facility] Rep[facility] (1 source) Penicillin Drug Allergy 3 [facility] (16 sources) Cefadroxil; Translations: [CEFADROXIL] Drug Allergy 3 [facility] (16 sources) Penicillins; Translations: [PENICILLINS] Drug Intolerance 7 [facility] Medications Current Medications Medication Drug Class(es) Dates Sig (Normalized) Sig (Original) acetaminophen 500 mg oral tablet (15 sources) take 2 tablets by mouth in [...] (Therapy completed) ibuprofen 800 mg oral tablet (6 sources) Nonsteroidal Anti-inflammatory Drug Start: 08-29-2024 End: 09-08-2024 take 1 tablet by mouth every six hours for pain ibuprofen 800 MG tablet Indications: Cramp, abdominal , History of ovarian cyst Take 1 tablet (800 mg) by mouth every 6 (six) hours if needed for mild pain for up to 10 days 20 tablet 08/29/2024 09/08/2024 Active ibuprofen 800 MG tablet Take 400 mg by mouth every 6 (six) hours if needed for mild pain Active meloxicam 15 mg oral tablet (3 [...] 07/30/2024 Active temazepam 15 mg oral capsule (13 sources) Benzodiazepine Start: 07-11-2024 temazepam (Restoril) 15 MG capsule Take 15 mg by mouth as needed at bedtime for sleep 07/11/2024 Active End: 07-23-2024 temazepam (Restoril) 7.5 MG capsule Take 7.5 mg by mouth as needed at bedtime for sleep 07/23/2024 Discontinued vortioxetine 10 mg oral tablet (14 sources) Start: 07-11-2024 take 1 tablet by mouth in the morning Vortioxetine HBr 10 MG tablet Take 10 mg by mouth in the morning. 07/11/2024 Active Start: 01-18-2024 End: 07-23-2024 Vortioxetine HBr (Trintellix ) 5 MG tablet 01/18/2024 07/23/2024 Discontinued Problems Active Problems Problem Classification Problem Date Documented Date Episodic/Chronic Abdominal pain (4 sources) Finding of sensation of abdomen; Translations: [Unspecified abdominal pain] 08-29-2024 Episodic Abdominal pain (4 sources) Pelvic and perineal pain; Translations: [PELVIC AND PERINEAL PAIN] Onset: 12-28-2019 Acute bronchitis (2 sources) Acute infective bronchitis; Translations: [Acute bronchitis due to other specified organisms] 05-10-2024 Episodic Anxiety disorders (16 sources) Generalized anxiety disorder; Translations: [Generalized anxiety disorder] Onset: 01-18-2024 01-20-2024 Chronic Contraceptive and procreative management (2 sources) Encounter for sterilization; Translations: [Encounter for removal of intrauterine contraceptive device] Onset: 01-21-2020 Episodic Diabetes mellitus with complications (4 sources) Type 2 diabetes mellitus with other circulatory complications; Translations: [TYP 2 DM W/CIRC COMPLICATIONS] Onset: 12-21-2019 Chronic Hypertension with complications and secondary hypertension (15 sources) Nephrosclerosis; Translations: [Hypertensive chronic kidney disease with stage 1 through stage 4 chronic kidney disease, or unspecified chronic kidney disease] Onset: 01-05-2023 01-05-2023 Chronic Menstrual disorders (10 sources) Irregular menstruation, unspecified; Translations: [Dysmenorrhea, unspecified] Onset: 11-27-2019 08-29-2024 Chronic Mood disorders (20 sources) Depressive disorder; Translations: [Depression] Onset: 01-05-2023 01-05-2023 Chronic Other ear and sense organ disorders (15 sources) Conductive hearing loss; Translations: [Conductive hearing [...] HUMAN PAPILLOMAVIRUS] Onset: 09-26-2019 Episodic Mood disorders (15 sources) Mood disorders Onset: 09-19-2023 09-19-2023 Other connective tissue disease (15 sources) Pain of bilateral upper limbs; Translations: [Pain in right arm] Onset: 02-22-2023 02-22-2023 Episodic Other screening for suspected conditions (not mental disorders or infectious disease) (4 sources) Encounter for screening for malignant neoplasm of cervix; Translations: [ENC SCREENING MALIG NEOPLASM CERV] Onset: 09-24-2019 Episodic Residual codes; unclassified (15 sources) Insomnia; Translations: [Insomnia, unspecified] Onset: 01-05-2023 01-05-2023 Episodic Results Test Name Value Interpretation Reference Range Facility HCG ( test) Ql (U)o n 10-16-2024 Interpretation and review of laboratory results Normal [facility] Preg Test, Ur Negative Negative [facility] Urinalysis macro (dipstick) panel (U)on 10-16-2024 Bilirubin, UA Negative Negative - 4(70) +++ mg/dL [facility] Blood, UA Negative Negative - 50 Myron/mcL [facility] Clarity, UA Clear [facility] Color, UA Yellow [facility] Glucose, UA Negative Negative - 2000(110) ++++ mg/dL [facility] Interpretation and review of laboratory results Normal [facility] Ketones, UA Negative Negative - 160(16) ++++ mg/dL [facility] Leukocytes, UA Negative Negative - 500+++ Johanna/mcL [facility] Nitrite, UA Negative Negative - Positive [facility] pH, UA 6 5 - 9 [facility] Protein, UA Negative Negative - 1999(20) ++++ mg/dL [facility] Spec Grav, UA 1.015 1 - 1.03 [facility] Urobilinogen, UA 0.2 0.2 - 12 mg/dL [facility] US PELVIS W/ TRANSVAGINALon 09-12-2024 [place] [id number] Ultrasound Report Signed Patient: SVITLANA OSEGUERA MR#: [id number] : 1985 Acct:[id number] Age/Sex: 39 / F ADM Date: 09/12/24 Loc: US Attending Dr: Myesha Ta Ordering Physician: Myesha Ta Date of Service: 09/12/24 Procedure(s): US pelvis w/ transvaginal Accession Number(s): [id number] cc: Myesha Ta; EMMA STANTON [address] [address] Patient Name: SVITLANA OSEGUERA MRN: [id number] date: 1985 Sex: F Assigned Patient Location: US Current Patient Location: US Accession/Order Number: [id number] Exam Date: 09/12/2024 22:27 Report Date: 09/12/2024 22:29 At the request of: MYESHA TA Procedure: US pelvis w/ transvaginal Pelvic ultrasound. Reason for exam: Right-sided pelvic pain on and off for 3 weeks. Comparison: Pelvic ultrasound 11/27/2019 Technique: Transabdominal imaging of the uterus and ovaries was performed. Transvaginal imaging of the uterus and ovaries was also obtained. Additional spectral Doppler analysis of the ovaries was also obtained. Findings: Uterus measures 8.2 x 3.6 x 5.4 cm. No fibroid is noted. Endometrium measures 5.5 mm without focal abnormality. No free fluid is seen. Right ovary measures 4.2 x 3.3 x 2.2 cm. Left ovary not visualized. Normal arterial and venous Doppler waveform of the right ovary. No adnexal mass. Dominant follicle is seen within the right ovary. US/US pelvis w/ transvaginal Impression: Unremarkable ultrasound. Impression dictated by: Jamarcus Manning Jr., D.O.09/12/2024 10:29 PM Dictation Location: [place] [address] Electronically authenticated by: [id number] Y Date: 09/12/2024 22:29 Dictated By: Jamarcus Mnaning M.D. Signed By: 09/12/242231 DD/ 28 TD/TT: In Mold Coater: [facility] Radiology, Radiologist, - 09/12/2024 [place] [address] Ultrasound Report Signed Patient: SVITLANA OSEGUERA MR#: [id number] : 1985 Acct:[id number] Age/Sex: 39 / F ADM Date: 09/12/24 Loc: US Attending Dr: Myesha Ta Ordering Physician: Myesha Ta Date of Service: 09/12/24 Procedure(s): US pelvis w/ transvaginal Accession Number(s): [id number] cc: EMMA Colbert [address] [address] Patient Name: SVITLANA OSEGUERA MRN: [facility]:[id number] date: 1985 Sex: F Assigned Patient Location: US Current Patient Location: US Accession/Order Number: [id number] Exam Date: 09/12/2024 22:27 Report Date: 09/12/2024 22:29 At the request of: MYESHA TA Procedure: US pelvis w/ transvaginal Pelvic ultrasound. Reason for exam: Right-sided pelvic pain on and off for 3 weeks. Comparison: Pelvic ultrasound 11/27/2019 Technique: Transabdominal imaging of the uterus and ovaries was performed. Transvaginal imaging of the uterus and ovaries was also obtained. Additional spectral Doppler analysis of the ovaries was also obtained. Findings: Uterus measures 8.2 x 3.6 x 5.4 cm. No fibroid is noted. Endometrium measures 5.5 mm without focal abnormality. No free fluid is seen. Right ovary measures 4.2 x 3.3 x 2.2 cm. Left ovary not visualized. Normal arterial and venous Doppler waveform of the right ovary. No adnexal mass. Dominant follicle is seen within the right ovary. US/US pelvis w/ transvaginal Impression: Unremarkable ultrasound. Impression dictated by: Jamarcus Manning Jr., D.O.09/12/2024 10:29 PM Dictation Location: [facility] | Anywhere Electronically authenticated by: [id number] Y Date: 09/12/2024 22:29 Dictated By: Jamarcus Manning M.D. Signed By: 09/12/242231 DD/ 28 TD/TT: In Mold Coater: [facility] Radiology Study observation (narrative) [facility] US PELVIS W/ TRANSVAGINALOrd ered By: Radiologist Radiology on 09-12-2024 [facility] Work Phone: ALL CBC WITH AUTO DIFFon BASOPHILS ABSOLUTE AUTO 0.[address] [facility] Basophils/100 WBC (Bld) 1.5 % 0.2 - 2.0 % [facility] Eosinophils/100 WBC (Bld) 3.4 % 0.9 - 7.0 % [facility] Erythrocyte distribution width (RBC) [Ratio] 13.1 % 11.0 - 15.0 % [facility] Hematocrit (Bld) [Volume fraction] 42.5 % 36.0 - 48.0 % [facility] Hemoglobin (Bld) [Mass/Vol] 14.4 g/dL 12.0 - 16.0 g/dL [facility] IMMATURE GRANULOCYTES ABS AUTO 0.03 [facility] Immature granulocytes/100 WBC (Bld) 0.3 % 0.0 - 0.5 % [facility] Interpretation and review of laboratory results Abnormal [facility] LYMPHOCYTES ABSOLUTE AUTO 2.6 [facility] Lymphocytes/100 WBC (Bld) 26 % 20.5 - 60.0 % [facility] MCH (RBC) [Entitic mass] 31.2 pg 26.7 - 34.0 pg [facility] MCHC (RBC) [Mass/Vol] 33.9 g/dL 29.9 - 35.2 g/dL [facility] MCV (RBC) [Entitic vol] 92 fL 81.0 - 99.0 fL [facility] MONOCYTES ABSOLUTE AUTO 0.[address] [facility] Monocytes/100 WBC (Bld) 4.1 % 1.7 - 12.0 % [facility] NEUTROPHILS ABSOLUTE AUTO 6.6 High [facility] Neutrophils/100 WBC (Bld) 64.7 % 43.0 - 75.0 % [facility] Platelet mean volume (Bld) [Entitic vol] 9.2 fL Low 9.5 - 13.5 fL [facility]H EO # 0.3 [facility] PLT [facility] RBC 4.62 [facility] WBC 10.1 [facility] Urinalysis macro (dipstick) panel (U)on 08-29-2024 Bilirubin, UA Negative Negative - 4(70) +++ mg/dL [facility] Blood, UA Positive Negative - 50 Myron/mcL [facility] Comment on above: trace-intact Clarity, UA Clear [facility] Color, UA Yellow [facility] Glucose, UA Negative Negative - 1999(110) ++++ mg/dL [facility] Interpretation and review of laboratory results Abnormal [facility] Ketones, UA Negative Negative - 160(16) ++++ mg/dL [facility] Leukocytes, UA Negative Negative - 500+++ Johanna/mcL [facility] Nitrite, UA Negative Negative - Positive [facility] pH, UA 6.5 5 - 9 [facility] Protein, UA Negative Negative - 1999(20) ++++ mg/dL [facility] Spec Grav, UA 1.015 1 - 1.03 [facility] Urobilinogen, UA 0.2 0.2 - 12 mg/dL [facility] Provider Orderson 05-08-2020 Provider Orders [id number] [facility] Coding Summaryon 05-02-2020 Coding Summary CODING DATE: 05/02/2020 [facility] STATUS: Home PAYOR: Commercial [employer] APC DESCRIPTION [...] Alanis Oliveira Date Saved: 05/02/2020 11:31 am [facility] [address] Orbit Sella etc. w/[facility]2020 CT Orbit Sella etc. w/o Contrast [...] Godinez 05/02/20 10:35 a Technologist: KAITLIN SPARROW [facility] Coding Summaryon 04-20-2020 Coding Summary CODING DATE: 04/20/2020 [facility] STATUS: Home PAYOR: Commercial Insurance ADMIT DX: [...] Mike Rahman Date Saved: 04/20/2020 01:12 pm [facility] Coding Summary CODING DATE: 04/20/2020 [facility] STATUS: Home PAYOR: Commercial Insurance ADMIT DX: [...] Mike Rahman Date Saved: 04/20/2020 01:11 pm [facility] ED Clinical Summaryon 2019 ED Clinical Summary [facility] - Emergency Department [address] [place] [address] ED Clinical Summary PERSON INFORMATION Name: SVITLANA OSEGUERA Age: 35 Years Sex: FEMALE : 1985 MRN: Acct#: Visit Reason: Ear pain; C/O RIGHT EAR PAIN Arrival: 04/16/2020 22:23:02 Discharge: 04/16/2020 22:56:00 LOS: 000 00:33 Check In: 04/16/2020 22:23:02 Checkout:04/16/2020 22:56:00 Address: [address] [facility] [place] [address] PCP: Ellie Denis PROVIDER INFORMATION Provider Role [...] Family/ Social History Surgical history: Tubal ligation ([id number]). Comments: 04/16/2020 22:32 NOET - Amandeep EVANS, [...] Plan Diagnosis Otitis media of right ear ([id number] H66.91, Discharge, Medical) Plan Condition: Stable. Disposition: [...] next 7 days this was sent to [facility] pharmacy for you. A prescription also for Floxin eardrops was sent to [facility] for you. 10 drops in the right ear daily over the next 7 days which he should lie on the opposite side when placing eardrops and lie there for 5 minutes before standing. Continue Tylenol or ibuprofen as needed for pain follow-up with nuclear fuel enrichment technician if continued right ear pain or discomfort. [...] Otitis Media, Adult Follow-Up: With: Address: When: Elliealda Denis [address] [place] [address] [address] [place], [place] [phone] Business (1) Within 3 to 5 days [...] next 7 days this was sent to [facility] for you. A prescription also for Floxin eardrops was sent to [facility] for you. 10 drops in the right ear daily over the next 7 days which he should lie on the opposite side when placing eardrops and lie there for 5 minutes before standing. Continue Tylenol or ibuprofen as needed for pain follow-up with nuclear fuel enrichment technician if continued right ear pain or discomfort. Information is given for you in regards to local ENT Dr. Guaman. You may return here to the emergency department for any worsening or concerning symptoms. With: Address: When: Joao Guaman [address] [place] [address] Business (1) Within 3 to 5 days DIAGNOSIS: Otitis media of right ear Patient Understands: Yes - Patient/family/careg iver verbalizes understanding of instructions given Comment: [facility] ED Note - Physicianon 2019 ED Note [...] Family/ Social History Surgical history: Tubal ligation ([id number]). Comments: 04/16/2020 22:32 NOET - Amandeep EVANS, [...] Plan Diagnosis Otitis media of right ear ([id number] H66.91, Discharge, Medical) Plan Condition: Stable. Disposition: [...] next 7 days this was sent to [facility] pharmacy for you. A prescription also for Floxin eardrops was sent to [facility] pharmacy for you. 10 drops in the right ear daily over the next 7 days which he should lie on the opposite side when placing eardrops and lie there for 5 minutes before standing. Continue Tylenol or ibuprofen as needed for pain follow-up with nuclear fuel enrichment technician if continued right ear pain or discomfort. [...] on: 04/16/2020 22:56 EDT] Clarence Torre PA-C [facility] ED Note-Nursingon 04-17-2020 ED Note-Nursing Pt arrives to ED room 7 complaining of right ear pain since [...] has changed. Pt currently resting on cart. [facility] ED Patient Education Noteon 04-17-2020 ED [...] Follow these instructions at home: ? Take mpoc-hok-hschdfj and prescription medicines only as told by [...] 04/01/2005 Document Revised: 06/09/2018 Document Reviewed: 06/17/2017 Elsevier Patient Education ? 2019 [employer]. Normal [facility] ED Patient Summaryon 020 ED Patient Summary [facility] - Emergency Department [address] [place] [address] PATIENT DISCHARGE INSTRUCTIONS Patient Information Name: SVITLANA OSEGUERA Age: 35 Years Date of : 1985 Reason For Visit: Ear pain; C/O RIGHT EAR PAIN Arrival Time: 04/16/2020 22:23:02 Primary Care Physician: Ellie Denis Attending Physician: Adriano Doherty DO Comment: Visit Diagnosis: Diagnoses This Visit Ear pain ([id number]) Otitis media of right ear (H66.91) Prescription Information: If you have been given a prescription for narcotics, seek immediate medical attention if you have any difficulty breathing or any sudden status changes such as confusion and sleepiness. If you or anyone you know is experiencing suicidal thoughts, mental health, alcohol and/or drug addiction problems; contact the [facility] 31/01 Crisis Hotline -Text 3IPSG ph 398997. If you received any narcotics, sedation, or [...] legal documents With: Address: When: Ellie Denis [address] [place] [address], [address] [place] [address] Business (1) Within 3 to 5 days [...] next 7 days this was [facility] [place] [facility] [place]. A prescription also for Floxin eardrops was sent to [facility] pharmacy for you. 10 drops in the right ear daily over the next 7 days which he should lie on the opposite side when placing eardrops and lie there for 5 minutes before standing. Continue Tylenol or ibuprofen as needed for pain follow-up with nuclear fuel enrichment technician if continued right ear pain or discomfort. Information is given for you in regards to local ENT Dr. Guaman. You may return here to the emergency department for any worsening or concerning symptoms. With: Address: When: Joao Guaman [address] [place], [place] [id number] Business (1) Within 3 to 5 days Medication Information: The exam and treatment you received today in the [facility] Emergency Department were for an urgent problem and are not intended as complete care. It is important for you to follow up with a doctor, nurse practitioner, or physician?s drilling assistant for ongoing care. If your symptoms [...] so we can reach you if necessary. [facility] Emergency Department has provided you with a complete list of medications post discharge. Please inform your systems test technician/provider of your visit and for further instruction on these medications. Any specific questions regarding your chronic medications and dosages should be discussed with your primary care physician(s) and/or pharmacist. New Medications [facility] [address] [place], [place] [id number], [phone] doxycycline (doxycycline hyclate 100 mg oral capsule) [...] Follow these instructions at home: ? Take canz-hlu-jbiodcg and prescription medicines only as told by [...] 04/01/2005 Document Revised: 06/09/2018 Document Reviewed: 06/17/2017 [employer] Patient Education ? 2019 [employer] Viruses or Bacteria What?s got you sick? [...] for Disease Control and Prevention March 2014 [facility] CBC AUTO DIFFon 12-28-2019 Basophils (Bld) [#/Vol] 0.2 103/ul Critically high 0.0-0.1 [facility] Comment on above: Performed By: #### C BC #### [facility] [address] [place] [address] Isaac Ellie Basophils/100 WBC (Bld) 1.5 % Normal 0.2-2.0 [facility] Comment on above: Performed By: #### C BC #### [facility] [address] [place] [address] Isaac Ellie Eosinophils (Bld) [#/Vol] 0.7 103/ul Normal 0.0-0.7 [facility] Comment on above: Performed By: #### C BC #### [facility] [address] [place] [address] Isaac Ellie Eosinophils/100 WBC (Bld) 6.5 % Normal 0.9-7.0 [facility] Comment on above: Performed By: #### C BC #### [facility] [address] [place] [address] Isaac Ellie Erythrocyte distribution width (RBC) [Ratio] 12.9 % Normal 11.0-15.0 [facility] Comment on above: Performed By: #### C BC #### [facility] [address] [place] [address] Isaacrenny Argueta Hematocrit (Bld) [Volume fraction] 44.0 % Normal 36.0-48.0 [facility] Comment on above: Performed By: #### C BC #### [facility] [address] [place] [id number] Isaacrenny Argueta Hemoglobin (Bld) [Mass/Vol] 14.7 g/dL Normal 12.0-16.0 [facility] Comment on above: Performed By: #### C BC #### [facility] [address] [place] [address] Isaac Ellie IG # 0.03 10e3/ul Normal 0.00-0.03 [facility] Comment on above: Performed By: #### C BC #### [facility] [address] [place] [address] Isaac Ellie IG % 0.3 % Normal 0.0-0.5 [facility] Comment on above: Performed By: #### C BC #### [facility] [address] [place] [address] Isaac Ellie Lymphocytes (Bld) [#/Vol] 2.9 103/ul Normal 1.2-3.8 [facility] Comment on above: Performed By: #### C BC #### [facility] [address] [place], [place] [id number] Isaac Argueta Lymphocytes/100 WBC (Bld) 26.9 % Normal 20.5-60.0 [facility] Comment on above: Performed By: #### C BC #### [facility] [address] [place], [place] [id number] Isaac Argueta MANUAL DIFF REQ NO Normal [facility] Comment on above: Performed By: #### C BC #### [facility] [address] [place], [place] [id number] Isaac Argueta MCH (RBC) [Entitic mass] 31.3 pg Normal 26.7-34.0 [facility] Comment on above: Performed By: #### C BC #### [facility] [address] [place], [place] [id number] Isaacrenny Hicksen MCHC (RBC) [Mass/Vol] 33.4 g/dL Normal 29.9-35.2 [facility] Comment on above: Performed By: #### C BC #### [facility] [address] [place], [place] [id number] Isaac Ellie MCV (RBC) [Entitic vol] 93.8 fL Normal 81.0-99.0 [facility] Comment on above: Performed By: #### C BC #### [facility] [address] [place], [place] [phone] Isaac Ellie Monocytes (Bld) [#/Vol] 0.6 103/ul Normal 0.3-0.8 [facility] Comment on above: Performed By: #### C BC #### [facility] [address] [place] [address] Isaac Ellie Monocytes/100 WBC (Bld) 5.6 % Normal 1.7-12.0 [facility] Comment on above: Performed By: #### C BC #### [facility] [address] [place] [address] Isaac Ellie Neutrophils (Bld) [#/Vol] 6.3 103/ul Normal 1.4-6.5 [facility] Comment on above: Performed By: #### C BC #### [facility] [address] [place] [address] Isaac Ellie Neutrophils/100 WBC (Bld) 59.2 % Normal 43.0-75.0 [facility] Comment on above: Performed By: #### C BC #### [facility] [address] [place], [place] [phone] Isaac Ellie Platelet mean volume (Bld) [Entitic vol] 9.4 fL Critically low 9.5-13.5 [facility] Comment on above: Performed By: #### C BC #### [facility] [address] [place], [place] [phone] Isaac Ellie Platelets (Bld) [#/Vol] 311 103/ul Normal 150-450 [facility] Comment on above: Performed By: #### C BC #### [facility] [address] [place] [address] Isaac Argueta RBC (Bld) [#/Vol] 4.69 106/ul Normal 4.20-5.40 [facility] Comment on above: Performed By: #### C BC #### [facility] [address] [place] [id number] Isaac Argueta WBC (Bld) [#/Vol] 10.7 103/ul Normal 4.0-11.0 [facility] Comment on above: Performed By: #### C BC #### [facility] [address] [place], [place] [address] Isaac Argueta PREG QUANT HCGon 12-28-2019 HCG QUANT <1.00 Normal [facility] Comment on above: Performed By: #### P REGQNT #### [facility] [address] [place] [address] Isaac Argueta HCG RANGE SEE BELOW Normal [facility] Comment on above: Result Comment: 5-50 0-1 WEEK 40-300 1-2 WEEKS 100-1,000 2-3 WEEKS 500-6,000 3-4 WEEKS 5,000-200,000 1-2 MONTHS 10,000-100,000 2-3 MONTHS 3,000-50,000 2ND TRIMESTER 1,000-50,000 3RD TRIMESTER Performed By: #### P REGQNT #### [facility] [address] [place] [id number] Isaac Argueta COVID-19 PCRon 12-22-2019 SARS-CoV-2, CORKY Not Detected Normal Not Detected [facility] Comment on above: Result Comment: This test was developed and its performance characteristics determined by [employer]. This test has not been FDA cleared [...] Performed By: #### C VDPCR, CVDSTAT #### [facility] [address] [place] [id number] Isaac Argueta PRIORITY COVID PROCESSINGon 12-22-2019 Comment Comment Normal [facility] Comment on above: Result Comment: Rece ived Performed By: #### C VDPCR, CVDSTAT #### [facility] [address] [place] [address] Isaac Argueta US PELVIS AND TRANSVAGon US PELVIS AND TRANSVAG EXAM:US PELVIS AN D TRANSVAG INDICATION: Irregular periods COMPARISON: Renal ultrasound [...] short-term followup in 6-8 weeks to document stability/resolution . Electronically authenticated by: ROSANGELA OCHOA Date: 2019-11-27 10:54 Normal [facility] PAP ACOG PANEL 2: 30 to 65on 09-28-2019 Age Gdln ACOG Testing 30-65 Normal [facility] Comment on above: Performed By: #### [id number] #### [facility] [address] [place] [address] Isaacrenny Hicksen DIAGNOSIS: Comment Normal [facility] Comment on above: Result Comment: NEGA TIVE FOR INTRAEPITHELIAL LESION OR MALIGNANCY. Performed at: WB Performed By: #### [id number] #### [facility] [address] [place] [address] Isaac Argueta HPV Aptima Negative Normal Negative [facility] Comment on above: Result Comment: This test was developed and its performance characteristics determined by [employer]. It has not been cleared or approved by the Food and Drug Administration. This nucleic acid amplification test detects fourteen high-risk HPV types (16,18,31,33,35,39,45,51,52,56,58,59,66,68) without differentiation. Performed at: =G Performed By: #### [id number] #### [facility] [address] [place] [address] Isaac Argueta Methodology: Comment Normal [facility] Comment on above: Result Comment: This liquid based SurePath(R) pap test was screened with the assistance of an image guided system. Performed at: WB Performed By: #### [id number] #### [facility] [address] [place] [address] Isaac Ellie Note: Comment Normal [facility] Comment on above: Result Comment: The Pap smear is a screening test designed to aid in the detection of premalignant and malignant conditions of the uterine cervix. It is not a diagnostic procedure and should not be used as the sole means of detecting cervical cancer. Both false-positive and false-negative reports do occur. . Performed at: WB Performed By: #### [id number] #### [facility] [address] [place] [address] Isaac Ellie Performed by: Comment Normal [facility] Comment on above: Result Comment: Lobo Frazier Top Collar Baster (ASCP) Performed at: WB Performed By: #### 4 [id number] #### [facility] [address] [place] [address] Isaac Argueta Specimen adequacy: Comment Normal [facility] Comment on above: Result Comment: Sati sfactory for evaluation. Endocervical and/or squamous metaplastic cells (endocervical component) are present. Areas of partially obscuring inflammatory exudate are present. Performed at: WB Performed By: #### 4 [id number] #### [facility] [address] [place], [place] [address] Isaac Argueta . . Normal [facility] Comment on above: Result Comment: Perf ormed at: WB Performed By: #### 4 [id number] #### [facility] [address] [place], [place] [address] Isaac Argueta Vital Signs Date Time Vital Sign Value Performing Clinician Faci lity 10-16-2024 13:29-0400 Body mass index (BMI) [Ratio] 37.12 kg/m2 Dom Alyssa DO Work Phone: [facility] 10-16-2024 13:29-0400 Body weight 104.33 kg Dom Alyssa DO Work Phone: [facility] 10-16-2024 13:29-0400 Diastolic blood pressure 68 mm[Hg] Dom Alyssa DO Work Phone: [facility] 10-16-2024 13:29-0400 Systolic blood pressure 110 mm[Hg] Dom Alyssa DO Work Phone: [facility] 08-29-2024 09:41-0500 Body mass index (BMI) [Ratio] 36.48 kg/m2 Myesha RÍOS Work Phone: [facility] 08-29-2024 09:41-0500 Body weight 102.51 kg Myesha RÍOS Work Phone: [facility] 08-29-2024 09:41-0500 Diastolic blood pressure 70 mm[Hg] Myesha RÍOS Work Phone: [facility] 08-29-2024 09:41-0500 Systolic blood pressure 120 mm[Hg] Myesha RÍOS Work Phone: [facility] 07-23-2024 12:35-0500 Body height 167.6 cm Shanika Alejandro NP Work Phone: [facility] 07-23-2024 12:35-0500 Body mass index (BMI) [Ratio] 35.83 kg/m2 Shanika Salasenburg PHYSICIAN NEONATOLOGY Work Phone: [facility] 07-23-2024 12:35-0500 Body weight 100.7 kg Shanika Benitezburg PHYSICIAN NEONATOLOGY Work Phone: [facility] 07-23-2024 12:35-0500 Diastolic blood pressure 76 mm[Hg] Shanika Maritzaenburg PHYSICIAN NEONATOLOGY Work Phone: [facility] 07-23-2024 12:35-0500 Heart rate 61 /min Shanika Maritzaenburg PHYSICIAN NEONATOLOGY Work Phone: [facility] 07-23-2024 12:35-0500 Respiratory rate 18 /min Shanika Benitezburg PHYSICIAN NEONATOLOGY Work Phone: [facility] 07-23-2024 12:35-0500 SaO2% (BldA) [Mass fraction] 98 % Shanika Benitezburg PHYSICIAN NEONATOLOGY Work Phone: [facility] 07-23-2024 12:35-0500 Systolic blood pressure 122 mm[Hg] Shanika Maritzaenburg PHYSICIAN NEONATOLOGY Work Phone: [facility] 05-10-2024 09:33-0400 Body height 167.6 cm Emma Stanton MD Work Phone: [facility] 05-10-2024 09:33-0400 Body mass index (BMI) [Ratio] 35.02 kg/m2 Emma Stanton MD Work Phone: [facility] 05-10-2024 09:33-0400 Body weight 98.43 kg Emma Stanton MD Work Phone: [facility] 05-10-2024 09:33-0400 Diastolic blood pressure 72 mm[Hg] Emma Stanton MD Work Phone: [facility] 05-10-2024 09:33-0400 Heart rate 74 /min Emma Stanton MD Work Phone: [facility] 05-10-2024 09:33-0400 Respiratory rate 20 /min Emma Stanton MD Work Phone: [facility] 05-10-2024 09:33-0400 SaO2% (BldA) [Mass fraction] 99 % Emma Stanton MD Work Phone: [facility] 05-10-2024 09:33-0400 Systolic blood pressure 126 mm[Hg] Emma Stanton MD Work Phone: [facility] Healthcare Encounters Encounter Date Encounter Type Care Provider Facility Start: 10-16-2024 End: 10-16-2024 Bamboo flowsheet Dom Alyssa DO Work Phone: [facility] Start: 10-16-2024 End: 10-16-2024 Bamboo flowsheet Dom Alyssa DO Work Phone: [facility] Start: 10-16-2024 End: 10-16-2024 Patient encounter procedure Dom Alyssa DO Work Phone: [facility] Work Phone: Start: 10-16-2024 End: 10-16-2024 Periodic preventive med est patient 18-39 yrs Dom Alyssa DO Work Phone: [facility] Comment on above: Well woman exam with routine gynecological exam; Pre-operative exam; Pelvic pain in female; Menorrhagia with regular cycle Start: 10-16-2024 End: 10-16-2024 Preprocedural examination done Dom Alyssa DO Work Phone: [facility] Start: 10-05-2024 End: 10-05-2024 ambulatory [facility] Start: 10-01-2024 End: 10-01-2024 Bamboo flowsheet Dom Alyssa DO Work Phone: [facility] Start: 10-01-2024 End: 10-01-2024 Bamboo flowsheet Dom Alyssa DO Work Phone: [facility] Start: 10-01-2024 End: 10-01-2024 ambulatory DOM ALYSSA Not Available Start: 09-12-2024 End: 09-12-2024 Clinisync Result Encounter Generic External Data Provider [facility] Unsolicited Start: 09-12-2024 End: 09-12-2024 Clinisync Result Encounter Generic External Data Provider [facility] Unsolicited Start: 08-29-2024 End: 08-29-2024 Bamboo flowsheet Myesha RÍOS Work Phone: [facility] Start: 08-29-2024 End: 08-29-2024 Bamboo flowsheet Myesha Ta PA Work Phone: [facility] Start: 08-29-2024 End: 08-29-2024 Clinisync Result Encounter Generic External Data Provider [facility] Unsolicited Start: 08-29-2024 End: 08-29-2024 Office outpatient visit 15 minutes Myesha RÍOS Work Phone: [facility] Comment on above: Cramp, abdominal; Menorrhagia with regular cycle; History of ovarian cyst Start: 08-29-2024 End: 08-29-2024 ambulatory MYESHA TA Not Available Start: 08-10-2024 End: 08-10-2024 ambulatory [facility] Start: 07-23-2024 End: 07-23-2024 Bamboo flowsheet Shanika A Hackenburg PHYSICIAN NEONATOLOGY Work Phone: [facility] Start: 07-23-2024 End: 07-23-2024 Bamboo flowsheet Shanika A Hackenburg PHYSICIAN NEONATOLOGY Work Phone: [facility] Start: 07-23-2024 End: 07-23-2024 ambulatory SHANIKA A HACKENBURG Not Available Start: 07-23-2024 End: 07-23-2024 Office outpatient visit 15 minutes Shanika A Hackenburg PHYSICIAN NEONATOLOGY Work Phone: [facility] Comment on above: Acute diffuse otitis externa of left ear (Primary Dx) Start: 06-15-2024 End: 06-15-2024 ambulatory [facility] Start: 05-10-2024 End: 05-10-2024 Bamboo flowsheet [...] Dx) Start: 05-10-2024 End: 05-10-2024 ambulatory [facility] Penelope MAXIMINO Not Available Start: 04-09-2024 End: 04-09-2024 [facility] Start: 03-23-2024 End: 03-23-2024 [facility] Start: 02-17-2024 End: 02-17-2024 [facility] Start: 01-20-2024 End: 01-20-2024 ambulatory [facility] Penelope MAXIMINO Not Available Start: 01-18-2024 End: 01-18-2024 ambulatory [facility] Start: 10-10-2023 End: 10-10-2023 ambulatory RUPERTO Bertha UMBERTO Not Available Start: 12-28-2019 End: 12-28-2019 Patient encounter procedure DOM ALYSSA Facility:[facility] Start: 12-21-2019 End: 12-22-2019 Patient encounter procedure DOM ALYSSA Facility:[facility] Start: 11-27-2019 End: 11-28-2019 Patient encounter procedure DOM ALYSSA Facility:[facility] Start: 09-24-2019 End: 09-24-2019 Patient encounter procedure DOM ALYSSA Facility:[facility] Procedures Date Procedure Procedure Detail Performing Clinician Start: 10-16-2024 Urnls dip stick/tabl et rgnt non-auto w/o micrscp Dom Alyssa DO Work Phone: Start: 09-12-2024 US PELVIS W/ TRANSVAGINAL Generic External Data Provider Start: 08-29-2024 ALL CBC WITH AUTO DIFF Myesha RÍOS Work Phone: Start: 08-29-2024 Urnls dip stick/tabl et rgnt non-auto w/o micrscp Myesha RÍOS Work Phone: Plan of Treatment Date Care Activity Detail Author Start: 03-11-2025 Influenza vaccination Influenz a Vaccine (Season Ended) [facility] Start: 01-07-2025 Influenza vaccination Influenza Vacc ine (#1) [facility] Comment on above: Postponed from 03/11 (Patient Refused) Start: 01-01-2025 End: 01-01-2025 Patient encounter procedure 01/01/2025 1:20 PM EDT Consult [facility] [address] [place] [address] Dom Shah, DO [address] [place] [address] [facility] Start: 10-16-2024 End: 10-16-2024 Patient encounter procedure 10/16/2024 1:20 PM EDT Office Visit [facility] [address] [place] [address] Dom Shah, DO [address] [place], [place] [phone] Arrived [facility] Comment on above: Arrived Start: 10-01-2024 End: 10-01-2024 Patient encounter procedure 10/01/2024 2:00 PM EDT Office Visit [facility] [address] [place] [address] Dom Shah, DO [address] [place], [place] [phone] Arrived [facility] Comment on above: Arrived Start: 09-27-2024 End: 09-27-2024 Patient encounter procedure 09/27/2024 9:10 AM EDT Office Visit [facility] [address] [place] [phone] Dom Shah DO [address] [place] [address] [facility] Start: 08-29-2024 End: 08-29-2025 aPTT in Blood by Coagulation assay APTT Lab Routine Menorrhagia with regular cycle Expected: 08/29/2024 (Approximate), Expires: 08/29/2025 [facility] Comment on above: Expected: 08/29/2024 (Approximate), Expires: 08/29/2025 Start: 08-29-2024 End: 08-29-2025 US Pelvis US Pelvis w/ TV Imaging Routine Cramp, abdominal Menorrhagia with regular cycle History of ovarian cyst Expected: 08/29/2024, Expires: 08/29/2025 [facility] Comment on above: Expected: 08/29/2024 , Expires: 08/29/2025 Start: 08-29-2024 End: 08-29-2024 Patient encounter procedure 08/29/2024 9:40 AM EST Office Visit [facility] [address] [place] [phone] Myesha Ta PA [address] [place], [place] [phone] Arrived [facility] Comment on above: Arrived Start: 05-10-2024 End: 05-10-2024 Patient encounter procedure 05/10/2024 9:40 AM EDT Office Visit [facility] [address] [facility] [address] [facility] [place] [phone] Emma Stanton MD [address] [facility] [address] [place], [place] [id number] Arrived [facility] Comment on above: Arrived Start: 03-11-2024 Influenza vaccination Influenza Vacc ine (#1) [facility] Start: 2017 Screening for malign ant neoplasm of cervix [facility] Start: 2008 Screening for malign ant neoplasm of cervix Pap Smear [facility] CBC W Auto Different ial panel - Blood CBC and differential Lab Routine Menorrhagia with regular cycle Ordered: 08/29/2024 [facility] Work Phone: Comment on above: Ordered: 08/29/2024 hCG, quantitative, hCG, quantitative, Lab Routine Menorrhagia with regular cycle Ordered: 08/29/2024 [facility] Comment on above: Ordered: 08/29/2024 Hemoglobin A1c/Hemoglobin.total in Blood Hemoglobin A1c Lab Routine Menorrhagia with regular cycle Ordered: 08/29/2024 [facility] Comment on above: Ordered: 08/29/2024 Prothrombin time (PT ) in Blood by Coagulation assay Protime-INR Lab Routine Menorrhagia with regular cycle Ordered: 08/29/2024 [facility] Comment on above: Ordered: 08/29/2024 Thyrotropin [Units/volume] in Serum or Plasma TSH Lab Routine Menorrhagia with regular cycle Ordered: 08/29/2024 [facility] Comment on above: Ordered: 08/29/2024 Thyroxine (T4) free [Mass/volume] in Serum or Plasma T4, free Lab Routine Menorrhagia with regular cycle Ordered: 08/29/2024 [facility] Comment on above: Ordered: 08/29/2024 Immunizations Immunization Date Immunization Notes Care Provider [facility] 02-21-2024 tetanus toxoid, redu priyanka diphtheria toxoid, and acellular pertussis vaccine, adsorbed Emma Stanton MD Work Phone: [facility] 04-11-2023 tuberculin skin test ; purified protein derivative solution, intradermal Emma Stanton MD Work Phone: [facility] Work Phone: Payers Date Payer Category Payer Private Health Insurance [facility] [id number] 1987 Unknown [id number] [id number]. 2.593 1987 Unknown [id number] 2.16.840.1.689202.3.579. 2.593 1987 Unknown [id number] 2.16.840.1.045228.3.579. 2.59 1987 Unknown [id number] 2.16.840.1.631150.3.579. 2.59 1987 Unknown [id number] 2.16.840.1.620188.3.579. 2.1258 1987 Unknown [id number] 2.16.840.1.559431.3.579. 2.1258 1987 Unknown [id number] 2.16.840.1.100931.3.579. 2.1258 1987 Unknown [id number] 2.16.840.1.482256.3.579. 2.1258 1987 Unknown [id number] 2.16.840.1.489823.3.579. 2.1258 1987 Unknown [id number] 2.16.840.1.988007.3.579. 2.1258 1987 Unknown [id number] 2.16.840.1.132281.3.579. 2.1285 1987 Unknown [id number] 2.16.840.1.175187.3.579. 2.1285 1987 Unknown [id number] 2.16.840.1.225852.3.579. 2.1285 1987 Unknown [id number] 2.16.840.1.016944.3.579. 2.1285 1987 Unknown [id number] 2.16.840.1.533645.3.579. 2.1285 1987 Unknown [id number] 2.16.840.1.765630.3.579. 2.1286 1987 Unknown [id number] 2.16.840.1.427580.3.579. 2.1286 1959 Private Health Insurance [id number] Social History Date Type Detail Facility Start: 01-20-2024 Tobacco smoking status NHIS Ex-smoke r [facility] End: 03-11-2022 History of tobacco use Current smoker [facility] End: 03-11-2022 History of tobacco use Cigarette Smoker [facility] Start: 01-20-2024 Tobacco use and exposure Smoke less tobacco non-user [facility] Start: 01-20-2024 End: 10-16-2024 Alcoholic beverage intake [facility]drinker (finding[facility] [...] Comment Smokes 10-19 c igs per day [facility] Start: 1987 Sex assigned at Not on file [facility] History of Present illness Narrative 10-16-2024 Lisa Kaden - 10/16/2024 1:20 PM EDT Note Date & Type Note Facility 10-16-2024 History of Presen t illness Narrative Reason for Appointment: Patient ID: Svitlana Oseguera is a 39 y.o. female who presents for Well Women Visit and Pre-op Visit Patient presents today for Pre Op/Annual appointment. Patient is scheduled to undergo Diagnostic Laparoscopy, possible COURT, possible FOE, possible BSO and D&C Hysteroscopy, possible Myosure on 11/09/[address] Shah at [facility]. MEDICATIONS Current Outpatient Medications Medication Instructions acetaminophen (TYLENOL) 1,000 mg, Daily ibuprofen 400 mg, Every 6 hours PRN temazepam (RESTORIL) 15 mg, Nightly PRN Vortioxetine HBr 10 mg, Daily RT ALLERGIES Allergies Allergen Reactions Cefadroxil Hives Penicillins Hives PROBLEMS Active Ambulatory Problems Diagnosis Date Noted Conductive hearing loss 01/05/2023 Depression ([facility]) 01/05/2023 Insomnia 01/05/2023 Nephrosclerosis ([facility]) 01/05/2023 Pain in both upper extremities 02/22/2023 Generalized anxiety disorder ([facility]) 01/18/2024 Moderate episode of recurrent major depressive disorder ([facility]) 01/18/2024 Resolved Ambulatory Problems Diagnosis Date Noted No Resolved Ambulatory Problems Past Medical History: Diagnosis Date Allergies Anxiety Cholesteatoma H/O tubal ligation History of medical problems 08/2016 Wrist fracture, left HISTORY PAST MEDICAL HISTORY SOCIAL HISTORY Past Medical History: Diagnosis Date Allergies Anxiety Cholesteatoma Depression ([facility]) H/O tubal ligation History of medical problems 08/2016 perforated left TM Wrist fracture, left age 18 Social History Tobacco Use Smoking status: Former Current packs/day: 0.00 Types: Cigarettes Quit date: 03/11/2022 Years since quittin.6 Smokeless tobacco: Never Tobacco comments: Smokes 10-19 cigs per day Substance Use Topics Alcohol use: Not Currently Drug use: Never FAMILY HISTORY Family History Problem Relation Name Age of Onset Cancer Mother Gerri Skin cancer Mother Gerri COPD Mother Gerri Hearing loss Father Sal Heart disease Father Sal SURGICAL HISTORY Past Surgical History: Procedure Laterality Date ADENOIDECTOMY 2010 ENDOMETRIAL ABLATION 12/2019 INNER EAR SURGERY Right 2005 cholesteatoma TUBAL LIGATION 2019 TYMPANOSTOMY Left 2002 TYMPANOSTOMY TUBE PLACEMENT Right 01/23/2021 REVIEW OF SYSTEMS Review of Systems: Review of Systems Constitutional: Negative. HENT: Negative. Eyes: Negative. Respiratory: Negative. Cardiovascular: Negative. Gastrointestinal: Negative. Genitourinary: Positive for menstrual problem and pelvic pain. Musculoskeletal: Negative. Skin: Negative. Neurological: Negative. All other systems reviewed and are negative. Hematological: Negative. Endocrine: Negative. Allergic/Immunologic: Negative. OBJECTIVE Objective: Physical Exam Constitutional: Appearance: Normal appearance. She is well-developed. Genitourinary: Vulva normal. Cardiovascular: Rate and Rhythm: Normal rate and regular rhythm. Pulmonary: Effort: Pulmonary effort is normal. Breath sounds: Normal breath sounds. Abdominal: General: Bowel sounds are normal. There is no distension. Palpations: Abdomen is soft. Tenderness: There is no abdominal tenderness. There is no guarding or rebound. Musculoskeletal: General: No swelling. Normal range of motion. Right lower leg: No edema. Left lower leg: No edema. Neurological: Mental Status: She is alert and oriented to person, place, and time. Skin: General: Skin is warm and dry. Psychiatric: Mood and Affect: Mood normal. Behavior: Behavior normal. Vitals and nursing note reviewed. Exam conducted with a pole maker present. Vitals: Estimated body mass index is 37.12 kg/m as calculated from the following: Height as of 07/23/24: 5' 6 . Weight as of this encounter: 230 lb. BP: 110/68 Patient's last menstrual period was 09/24/2024. ASSESSMENT & PLAN ICD-10-CM 1. Well woman exam with routine gynecological exam Z01.419 POCT , urine manually resulted POCT urinalysis dipstick manually resulted 2. Pre-operative exam Z01.818 3. Pelvic pain in female R10.2 4. Menorrhagia with regular cycle N92.0 Annual: Patient presents today for an annual exam. Patient states she is doing well and has no complaints. Pap was obtained without difficulty. Pre Op: Patient is doing well but has complaints of pelvic pain and menorrhagia. I have discussed conservative management vs. surgical management with the patient in detail and patient desires surgical management at this time. Patient will undergo Diagnostic Laparoscopy, possible COURT, possible FOE, possible BSO and D&C Hysteroscopy, possible Myosure on 11/09/2024. Surgical consents were signed, mmc was reviewed, and patient is to proceed to [facility] OR. Follow Up: Patient is to follow up between 1-2 weeks post operative to assess proper healing and recovery from procedure. Documented by Ellie Quinn LPN on behalf of: Dom Shah DO documented in this encounter [facility] History of Present illness Narrative 08-29-2024 [...] Date Noted Conductive hearing loss 01/05/2023 Depression (CMS/HCC) 01/05/2023 Insomnia 01/05/2023 Nephrosclerosis (CMS/HCC) 01/05/2023 Pain in both upper extremities 02/22/2023 [...] History: Diagnosis Date Allergies Anxiety Cholesteatoma Depression (CMS/HCC) H/O tubal ligation History of medical problems [...] EAR SURGERY Right 2005 cholesteatoma TUBAL LIGATION 2019 TYMPANOSTOMY Left 2002 [...] nursing note reviewed. Exam conducted with a pole maker present. Vitals: Estimated body mass index is [...] History of Present illness Narrative 07-23-2024 Shanika Alejandro NP - 07/23/2024 12:30 PM EST Note Date [...] EAR SURGERY Right 2005 cholesteatoma TUBAL LIGATION 2019 TYMPANOSTOMY Left 2002 [...] to prevent pneumonia. documented in this encounter [facility] Evaluation note Note Date & Type Note Facility Evaluation note Diagnosis Acute bronchitis due to other specified organisms- Primary documented in this encounter [facility] Evaluation note Note Date & Type Note Facility Evaluation note Diagnosis Acute diffuse otitis externa of left ear- Primary documented in this encounter [facility] Healthcare Evaluation note Note Date & Type Note Facility Evaluation note Diagnosis Cramp, abdominal Abdominal pain, unspecified site Menorrhagia with regular cycle History of ovarian cyst Personal history of other genital system and obstetric disorders documented in this encounter [facility] Evaluation note Note Date & Type Note Facility Evaluation note Diagnosis Well woman exam with routine gynecological exam Routine gynecological examination Pre-operative exam Unspecified pre-operative examination Pelvic pain in female Unspecified symptom associated with female genital organs Menorrhagia with regular cycle documented in this encounter [facility] Summary Purpose Family History No [...] This was performed without difficulty. Note [facility] [place] [place] NAME: SVITLANA OSEGUERA DATE OF : MEDICAL REC#: [id number] RETORT FURNACE OPERATOR: [address]RISON ADMIT DATE: 12/28/2019 06:09:00 PIE CRIMPING MACHINE OPERATOR DATE: 01/07/2020 08:00 DICTATING PHYSICIAN: DOM SHAH [...] and content) DATE CREATED AUTHOR 01/31/2020 [facility] DATE CREATED AUTHOR AUTHOR'S ORGANIZ ATION 05/08/2020 [facility] DATE CREATED AUTHOR AUTHOR'S ORGANIZ ATION 10/02/2024 [facility] EPIC DATE CREATED AUTHOR AUTHOR'S ORGANIZ ATION 10/06/2024 [facility] Care Teams (unrecognized sec tion and content) Brooch Maker Novelty Relationship Specialty Start Date End Date Emma Stanton MD [address] [place] [address] PCP - General Family Medicine 01/04/23 Brooch Maker Novelty Relationship Specialty Start Date End Date Emma Stanton MD [address] [facility] [place] [address] PCP - General Family Medicine 01/04/23 Brooch Maker Novelty Relationship Specialty Start Date End Date Emma Stanton MD [address] [facility] [place] [address] PCP - General Family Medicine 01/04/23 Brooch Maker Novelty Relationship Specialty Start Date End Date Emma Stanton MD [address] [facility] [place] [address] PCP - General Family Medicine 01/04/23 Brooch Maker Novelty Relationship Specialty Start Date End Date Emma Stanton MD [address] [facility] [place] [address] PCP - General Family Medicine 01/04/23 Brooch Maker Novelty Relationship Specialty Start Date End Date Emma Stanton MD [address] [place] [address] PCP - General Family Medicine 01/04/23 Brooch Maker Novelty Relationship Specialty Start Date End Date Emma Stanton MD [address] [facility] [place] [address] PCP - General Family Medicine 01/04/23 Brooch Maker Novelty Relationship Specialty Start Date End Date Emma Stanton MD [address] [facility] [place], [place] [id number] PCP - General Family Medicine 01/04/23 Reason for Visit (unrecogniz ed section and content) Reason Comments Cough Nasal Congestion Fever Reason Comments Earache Reason Comments Dysmenorrhea Reason Comments Well Women Visit Pre-op Visit FOR RECORDS PERTAINING TO PATIENTS WHO ARE [...] BE BASED ON THE PRIMARY CLINICAL RECORDS. [employer] provides no warranty or guarantee of the accuracy or completeness of information in this document."
== END 2024-10-16 20:28 | disposition home or self-care (01) ==
LOC: LAB 20:27
PROVIDERS: Family Provider Family Medicine; PCP Family Medicine; Visit Provider Obstetrics & Gynecology
DX: Z01.419 Encounter for gynecological examination (general) (routine) without abnormal findings (principal)
CPT/HCPCS: 87624; 88175

== ENCOUNTER 2024-10-26 13:22 | Outpatient (OUT) | payer OTHER, SELFPAY ==
--- OUTSIDE RECORDS SUMMARY | 2024-10-26 13:41 | XMS_ITS | CCD ---
Author Organization [facility] Care Team Providers Care Clerical Specialist Name Role Phone ALYSSA, DOM Admitting Unavailable [...] Consulting Unavailable ALYSSA, DOM Consulting Unavailable Maximino MAYS, Emma Negrete [...] Unavailable MAXIMINO, EMMA F Primary Care Unavailable MAXIMINO, EMMA F Attending Unavailable MAXIMINO, EMMA F Attending Unavailable SHANIKA ALEJANDRO Attending Unavailab MYESHA Everett Attending Unavailable ALYSSA, DOM Attending Unavailable ALYSSA, DOM Attending Unavailable Allergies Allergy Classification Reported Allergen(s) Allergy Type Date of Onset Reaction(s) Facility (1 source) Codeine Drug Allergy 3 [facility] (1 source) Penicillin Drug Allergy 3 [facility] (17 sources) Cefadroxil; Translations: [CEFADROXIL] Drug Allergy 3 [facility] (17 sources) Penicillins; Translations: [PENICILLINS] Drug Intolerance 7 [facility] Medications Current Medications Medication Drug Class(es) Dates Sig (Normalized) Sig (Original) acetaminophen 500 mg oral tablet (16 sources) take 2 tablets by mouth in [...] (Therapy completed) ibuprofen 800 mg oral tablet (7 sources) Nonsteroidal Anti-inflammatory Drug Start: 08-29-2024 End: [...] 07/30/2024 Active temazepam 15 mg oral capsule (14 sources) Benzodiazepine Start: 07-11-2024 temazepam (Restoril) 15 MG capsule Take 15 mg by mouth as needed at bedtime for sleep 07/11/2024 Active End: 07-23-2024 temazepam (Restoril) 7.5 MG capsule Take 7.5 mg by mouth as needed at bedtime for sleep 07/23/2024 Discontinued vortioxetine 10 mg oral tablet (15 sources) Start: 07-11-2024 take 1 tablet by [...] other specified organisms] 05-10-2024 Episodic Anxiety disorders (17 sources) Generalized anxiety disorder; Translations: [Generalized anxiety disorder] Onset: 01-18-2024 01-20-2024 Chronic Contraceptive and procreative management (2 sources) Encounter for sterilization; Translations: [Encounter for removal of intrauterine contraceptive device] Onset: 01-21-2020 Episodic Diabetes mellitus with complications (4 sources) Type 2 diabetes mellitus with other circulatory complications; Translations: [TYP 2 DM W/CIRC COMPLICATIONS] Onset: 12-21-2019 Chronic Hypertension with complications and secondary hypertension (16 sources) Nephrosclerosis; Translations: [Hypertensive chronic kidney disease with stage 1 through stage 4 chronic kidney disease, or unspecified chronic kidney disease] Onset: 01-05-2023 01-05-2023 Chronic Menstrual disorders (10 sources) Irregular menstruation, unspecified; Translations: [Dysmenorrhea, unspecified] Onset: 11-27-2019 08-29-2024 Chronic Mood disorders (20 sources) Depressive disorder; Translations: [Depression] Onset: 01-05-2023 01-05-2023 Chronic Other ear and sense organ disorders (16 sources) Conductive hearing loss; Translations: [Conductive hearing [...] HUMAN PAPILLOMAVIRUS] Onset: 09-26-2019 Episodic Mood disorders (16 sources) Mood disorders Onset: 09-19-2023 09-19-2023 Other connective tissue disease (16 sources) Pain of bilateral upper limbs; Translations: [Pain in right arm] Onset: 02-22-2023 02-22-2023 Episodic Other screening for suspected conditions (not mental disorders or infectious disease) (4 sources) Encounter for screening for malignant neoplasm of cervix; Translations: [ENC SCREENING MALIG NEOPLASM CERV] Onset: 09-24-2019 Episodic Residual codes; unclassified (16 sources) Insomnia; Translations: [Insomnia, unspecified] Onset: 01-05-2023 01-05-2023 Episodic Results Test Name Value Interpretation Reference Range Facility IGP,APTIMA HPV,AGE GDLNon AGE GDLN ACOG TESTING Note . [facility] Comment on above: TESTS RESULT FLAG UN ITS REF RANGE LAB Clinician Provided Cytology Information Source.............Cervix;Endocervix No. of containers..01 ThinPrep Vial Age Algo ACOG Mine... FLAG LEGEND: L-Low Normal,H-High Normal,LL-Alert Low,HH-Alert High <-Panic Low,>-Panic High,A-Abnormal,AA-Critical Abnormal Performed at: 01 =G [address] [place] [address] Claudia Dwyer MD, HPV APTIMA Negative Negative [facility] Comment on above: This nucleic acid am plification test detects fourteen high- risk HPV types (16,18,31,33,35,39,45,51,52,56,58,59,66,68) without differentiation. Performed at: =[address] [id number] Press Setup Operator: Claudia Dwyer MD, Phone: [phone] Performed at: [address] [id number] Press Setup Operator: Claudia Dwyer MD, Phone: [phone] IGP, APTIMA HPV, RFX 16/18,45 Note . [facility] Comment on above: TESTS RESULT FLAG UN ITS REF RANGE LAB DIAGNOSIS: 02 NEGATIVE FOR INTRAEPITHELIAL LESION OR MALIGNANCY. Specimen adequacy: 02 Satisfactory for evaluation. Endocervical and/or squamous metaplastic cells (endocervical component) are present. Performed by: 02 Keeley Viramontes, Applications Development Consultant ([facility]) . 02 Note: Note 02 The Pap smear is a screening test designed to aid in the detection of premalignant and malignant conditions of the uterine cervix. It is not a diagnostic procedure and should not be used as the sole means of detecting cervical cancer. Both false-positive and false-negative reports do occur. Test Methodology: Note 02 This liquid based ThinPrep(R) pap test was screened with the use of an image guided system. HPV Genotype Reflex Note 02 Criteria not met, HPV Genotype not performed. FLAG LEGEND: L-Low Normal,H-High Normal,LL-Alert Low,HH-Alert High <-Panic Low,>-Panic High,A-Abnormal,AA-Critical Abnormal Performed at: [address] [facility] [place] [address] Claudia Dwyer MD, BRUSH-SPATULA CERVIX ENDOCERVIX [facility] HCG ( test) Ql (U)o n 10-16-2024 Interpretation and review of laboratory results Normal [facility] Preg Test, Ur Negative Negative [facility] Urinalysis macro (dipstick) panel (U)on 10-16-2024 Bilirubin, UA Negative Negative - 4(70) +++ mg/dL [facility] Blood, UA Negative Negative - 50 Myron/mcL [facility] Clarity, UA Clear [facility] Color, UA Yellow [facility] Glucose, UA Negative Negative - 1999(110) ++++ mg/dL [facility] Interpretation and review of laboratory results Normal [facility] Ketones, UA Negative Negative - 160(16) ++++ mg/dL [facility] Leukocytes, UA Negative Negative - 500+++ Johanna/mcL [facility] Nitrite, UA Negative Negative - Positive [facility] pH, UA 6 5 - 9 [facility] Protein, UA Negative Negative - 1999(20) ++++ mg/dL [facility] Spec Grav, UA 1.015 1 - 1.03 [facility] Urobilinogen, UA 0.2 0.2 - 12 mg/dL [facility] US PELVIS W/ TRANSVAGINALon 09-12-2024 [place] [id number] Ultrasound Report Signed Patient: SVITLANA OSEGUERA MR#: [id number] : 1985 Acct:[id number] Age/Sex: 39 / F ADM Date: 09/12/24 Loc: US Attending Dr: Myesha Ta Ordering Physician: Myesha Ta Date of Service: 09/12/24 Procedure(s): US pelvis w/ transvaginal Accession Number(s): [id number] cc: Myesha Ta; EMMA STANTON [address] [address] Patient Name: SVITLANA OSEGUERA MRN: [id number] date: 1985 Sex: F Assigned Patient Location: US Current Patient Location: US Accession/Order Number: [id number] Exam Date: 09/12/2024 22:27 Report Date: 09/12/2024 [...] Manning Jr., D.O.09/12/2024 10:29 PM Dictation Location: [place] [address] Electronically authenticated by: [id number] Y Date: 09/12/2024 22:29 Dictated By: Jamarcus Manning M.D. Signed By: 09/12/242231 DD/ 28 TD/TT: Mail Handler Sorter: [facility] Radiology, Radiologist, MD - 09/12/2024 [place] [address] Ultrasound Report Signed Patient: SVITLANA OSEGUERA MR#: [id number] : 1985 Acct:[id number] Age/Sex: 39 / F ADM Date: 09/12/24 Loc: US Attending Dr: Myesha Ta Ordering Physician: Myesha Ta Date of Service: 09/12/24 Procedure(s): US pelvis w/ transvaginal Accession Number(s): [id number] cc: Myesha Ta; EMMA STANTON [place] [id number] Patient Name: SVITLANA OSEGUERA MRN: [facility]:[id number] date: 1985 Sex: F Assigned Patient Location: US Current Patient Location: US Accession/Order Number: [id number] Exam Date: 09/12/2024 22:27 Report Date: 09/12/2024 [...] Manning Jr., D.O.09/12/2024 10:29 PM Dictation Location: [place] [address] Electronically authenticated by: [id number] Y Date: 09/12/2024 22:29 Dictated By: Jamarcus Manning M.D. Signed By: 09/12/242231 DD/ 28 TD/TT: Mail Handler Sorter: [facility] Study observation (narrative) [facility] US PELVIS W/ TRANSVAGINALOrd ered By: Radiologist Radiology on 09-12-2024 [facility] Work Phone: ALL CBC WITH AUTO DIFFon BASOPHILS ABSOLUTE AUTO 0.2 High N [facility] Basophils/100 WBC (Bld) 1.5 % 0.2 - 2.0 % [facility] Eosinophils/100 WBC (Bld) 3.4 % 0.9 - 7.0 % [facility] Erythrocyte distribution width (RBC) [Ratio] 13.1 % 11.0 - 15.0 % [facility] Hematocrit (Bld) [Volume fraction] 42.5 % 36.0 - 48.0 % [facility] Hemoglobin (Bld) [Mass/Vol] 14.4 g/dL 12.0 - 16.0 g/dL [facility] IMMATURE GRANULOCYTES ABS AUTO 0.03 [facility] Immature granulocytes/100 WBC (Bld) 0.3 % 0.0 - 0.5 % [facility] Interpretation and review of laboratory results Abnormal [facility] LYMPHOCYTES ABSOLUTE AUTO 2.6 [facility] Lymphocytes/100 WBC (Bld) 26 % 20.5 - 60.0 % [facility] MCH (RBC) [Entitic mass] 31.2 pg 26.7 - 34.0 pg [facility] MCHC (RBC) [Mass/Vol] 33.9 g/dL 29.9 - 35.2 g/dL [facility] MCV (RBC) [Entitic vol] 92 fL 81.0 - 99.0 fL [facility] MONOCYTES ABSOLUTE AUTO 0.4 N [facility] Monocytes/100 WBC (Bld) 4.1 % 1.7 - 12.0 % [facility] NEUTROPHILS ABSOLUTE AUTO 6.6 High [facility] Neutrophils/100 WBC (Bld) 64.7 % 43.0 - 75.0 % [facility] Platelet mean volume (Bld) [Entitic vol] 9.2 fL Low 9.5 - 13.5 fL [facility] TBH EO # 0.3 [facility] TB PLT 401 [facility] RBC 4.62 [facility] WBC 10.1 [facility] Urinalysis macro (dipstick) panel (U)on 08-29-2024 Bilirubin, UA Negative Negative - 4(70) +++ mg/dL [facility] Blood, UA Positive Negative - 50 Myron/mcL [facility] Comment on above: trace-intact Clarity, UA Clear [facility] Color, UA Yellow [facility] Glucose, UA Negative Negative - 1999(110) ++++ mg/dL [facility] Interpretation and review of laboratory results Abnormal [facility] Ketones, UA Negative Negative - 160(16) ++++ mg/dL [facility] Leukocytes, UA Negative Negative - 500+++ Johanna/mcL [facility] Nitrite, UA Negative Negative - Positive [facility] pH, UA 6.5 5 - 9 [facility] Protein, UA Negative Negative - 1999(20) ++++ mg/dL [facility] Spec Grav, UA 1.015 1 - 1.03 [facility] Urobilinogen, UA 0.2 0.2 - 12 mg/dL [facility] Provider Orderson 05-08-2020 Provider Orders [id number] [facility] Coding Summaryon 05-02-2020 Coding Summary CODING DATE: 05/02/2020 [facility] STATUS: Home PAYOR: Commercial Insurance APC [...] Alanis Oliveira Date Saved: 05/02/2020 11:[address] [facility] [address] Orbit Sella etc. w/o Cont yamila 05-01-2020 CT Orbit Sella etc. w/o Contrast [...] Godinez 05/02/20 10:35 a Technologist: KAITLIN SPARROW [facility] Coding Summaryon 04-20-2020 Coding Summary CODING DATE: 04/20/2020 [facility] STATUS: Home PAYOR: Commercial Insurance ADMIT [...] Mike Rahman Date Saved: 04/20/2020 01:12 pm [facility] Coding Summary CODING DATE: 04/20/2020 [facility] STATUS: Home PAYOR: Commercial Insurance ADMIT [...] Mike Rahman Date Saved: 04/20/2020 01:11 pm [facility] ED Clinical Summaryon 2019 ED Clinical Summary [facility] - Emergency Department [address] [place] [address] ED Clinical Summary PERSON INFORMATION Name: SVITLANA OSEGUERA Age: 35 Years Sex: FEMALE : 1985 MRN: Acct#: Visit Reason: Ear pain; C/O RIGHT EAR PAIN Arrival: 04/16/2020 22:23:02 Discharge: 04/16/2020 22:56:00 LOS: 000 00:33 Check In: 04/16/2020 22:23:02 Checkout:04/16/2020 22:56:00 Address: [address] [facility] [address] PCP: Ellie Denis PROVIDER INFORMATION Provider Role [...] Family/ Social History Surgical history: Tubal ligation ([id number]). Comments: 04/16/2020 22:32 EDT - Amandeep EVANS, [...] Plan Diagnosis Otitis media of right ear ([id number] H66.91, Discharge, Medical) Plan Condition: Stable. Disposition: [...] next 7 days this was sent to [facility] for you. A prescription also for Floxin eardrops was sent to [facility] for you. 10 drops in the right ear daily over the next 7 days which he should lie on the opposite side when placing eardrops and lie there for 5 minutes before standing. Continue Tylenol or ibuprofen as needed for pain follow-up with director of quantitative research if continued right ear pain or discomfort. [...] Adult Follow-Up: With: Address: When: Ellie Denis [address] [place] [address], [address] [place] [address] Business (1) Within 3 to 5 days [...] next 7 days this was sent to [facility] for you. A prescription also for Floxin eardrops was sent to [facility] for you. 10 drops in the right ear daily over the next 7 days which he should lie on the opposite side when placing eardrops and lie there for 5 minutes before standing. Continue Tylenol or ibuprofen as needed for pain follow-up with director of quantitative research if continued right ear pain or discomfort. Information is given for you in regards to local ENT Dr. Guaman. You may return here to the emergency department for any worsening or concerning symptoms. With: Address: When: Joao Guaman [address] [place] [address] Business (1) Within 3 to 5 days DIAGNOSIS: Otitis media of right ear Patient Understands: Yes - Patient/family/araseli iver verbalizes understanding of instructions given Comment: [facility] ED Note - Physicianon 2019 ED Note - Physician Patient: SVITLANA SOEGUERA Age: 35 years Sex: FEMALE : 1985 [...] Family/ Social History Surgical history: Tubal ligation ([id number]). Comments: 04/16/2020 22:32 EDT - Amandeep EVANS, [...] Plan Diagnosis Otitis media of right ear ([id number] H66.91, Discharge, Medical) Plan Condition: Stable. Disposition: [...] next 7 days this was sent to [facility] for you. A prescription also for Floxin eardrops was sent to [facility] for you. 10 drops in the right ear daily over the next 7 days which he should lie on the opposite side when placing eardrops and lie there for 5 minutes before standing. Continue Tylenol or ibuprofen as needed for pain follow-up with director of quantitative research if continued right ear pain or discomfort. Information is given for you in regards to local ENT Dr. Guaman. You may return here to the emergency department for any worsening or concerning symptoms.. Counseled: Patient, Regarding diagnosis, Regarding treatment plan, Regarding prescription, Patient indicated understanding of instructions. [Electronically Signed on: 04/16/2020 22:56 EDT] Clarence Torre PA-C [Verified on: 04/16/2020 22:56 EDT] Nicho GALLAGHER, Clarence Amaral [facility] ED Note-Nursingon 04-17-2020 ED Note-Nursing Pt arrives [...] has changed. Pt currently resting on cart. [facility] ED Patient Education Noteon 04-17-2020 ED Patient [...] Follow these instructions at home: ? Take ybjm-sgd-ikvkxyg and prescription medicines only as told by [...] Reviewed: 06/17/2017 [employer] Patient Education ? 2019 [employer] Normal [facility] ED Patient Summaryon 020 ED Patient Summary [facility] Emergency Department [address] [place] [address] PATIENT DISCHARGE INSTRUCTIONS Patient Information Name: SVITLANA OSEGUERA Age: 35 Years Date of : 1985 Reason For Visit: Ear pain; C/O RIGHT EAR PAIN Arrival Time: 04/16/2020 22:23:02 Primary Care Physician: Ellie Denis Attending Physician: Adriano Doherty DO Comment: Visit Diagnosis: Diagnoses This Visit Ear pain ([id number]) Otitis media of right ear (H66.91) Prescription Information: If you have been given a prescription for narcotics, seek immediate medical attention if you have any difficulty breathing or any sudden status changes such as confusion and sleepiness. If you or anyone you know is experiencing suicidal thoughts, mental health, alcohol and/or drug addiction problems; contact the [facility] 31/01 Crisis Hotline -Tthm 7ONJQ qt 563259. If you received any narcotics, sedation, or [...] legal documents With: Address: When: Ellie Denis [address] [place] [address], [address] [place] [address] Business (1) Within 3 to 5 days [...] next 7 days this was sent to [facility] for you. A prescription also for Floxin eardrops was sent to [facility] pharmacy for you. 10 drops in the right ear daily over the next 7 days which he should lie on the opposite side when placing eardrops and lie there for 5 minutes before standing. Continue Tylenol or ibuprofen as needed for pain follow-up with director of quantitative research if continued right ear pain or discomfort. Information is given for you in regards to local ENT Dr. Guaman. You may return here to the emergency department for any worsening or concerning symptoms. With: Address: When: Joao Guaman [address] [place] [address] Business (1) Within 3 to 5 days Medication Information: The exam and treatment you received today in the [facility] Emergency Department were for an urgent problem and are not intended as complete care. It is important for you to follow up with a doctor, nurse practitioner, or physician?s assistant women's soccer coach for ongoing care. If your symptoms become [...] so we can reach you if necessary. [facility] Emergency Department has provided you with a complete list of medications post discharge. Please inform your supplemental manager/provider of your visit and for further instruction on these medications. Any specific questions regarding your chronic medications and dosages should be discussed with your primary care physician(s) and/or pharmacist. New Medications [facility] [address], [place] [id number], [phone] doxycycline (doxycycline hyclate 100 mg oral capsule) [...] Follow these instructions at home: ? Take jnfd-grm-kmnpcao and prescription medicines only as told by [...] 04/01/2005 Document Revised: 06/09/2018 Document Reviewed: 06/17/2017 [employer] Patient Education ? 2019 [employer] Viruses or Bacteria What?s got you [...] Disease Control and Prevention March 2014 Normal [facility] CBC AUTO DIFFon 12-28-2019 Basophils (Bld) [#/Vol] 0.2 103/ul Critically high 0.0-0.1 [facility] Comment on above: Performed By: #### C BC #### [facility] [address] [place] [address] Isaac Ellie Basophils/100 WBC (Bld) 1.5 % Normal 0.2-2.0 [facility] Comment on above: Performed By: #### C BC #### [facility] [address] [place] [address] Isaac Ellie Eosinophils (Bld) [#/Vol] 0.7 103/ul Normal 0.0-0.7 [facility] Comment on above: Performed By: #### C BC #### [facility] [address] [place], [place] [id number] Isaac Ellie Eosinophils/100 WBC (Bld) 6.5 % Normal 0.9-7.0 [facility] Comment on above: Performed By: #### C BC #### [facility] [address] [place], [place] [id number] Isaac Ellie Erythrocyte distribution width (RBC) [Ratio] 12.9 % Normal 11.0-15.0 [facility] Comment on above: Performed By: #### C BC #### [facility] [address] [place], [place] [id number] Isaac Ellie Hematocrit (Bld) [Volume fraction] 44.0 % Normal 36.0-48.0 [facility] Comment on above: Performed By: #### C BC #### [facility] [address] [place], [place] [address] Isaac Ellie Hemoglobin (Bld) [Mass/Vol] 14.7 g/dL Normal 12.0-16.0 [facility] Comment on above: Performed By: #### C BC #### [facility] [address] [place] [id number] Isaac Ellie IG # 0.03 10e3/ul Normal 0.00-0.03 [facility] Comment on above: Performed By: #### C BC #### [facility] [address] [place] [id number] Isaac Ellie IG % 0.3 % Normal 0.0-0.5 [facility] Comment on above: Performed By: #### C BC #### [facility] [address] [place] [address] Isaac Ellie Lymphocytes (Bld) [#/Vol] 2.9 103/ul Normal 1.2-3.8 [facility] Comment on above: Performed By: #### C BC #### [facility] [address] [place], [place] [id number] Isaac Ellie Lymphocytes/100 WBC (Bld) 26.9 % Normal 20.5-60.0 [facility] Comment on above: Performed By: #### C BC #### [facility] [address] [place], [place] [id number] Isaac Ellie MANUAL DIFF REQ NO Normal [facility] Comment on above: Performed By: #### C BC #### [facility] [address] [place], [place] [phone] Isaac Ellie MCH (RBC) [Entitic mass] 31.3 pg Normal 26.7-34.0 [facility] Comment on above: Performed By: #### C BC #### [facility] [address] [place] [id number] Isaac Ellie MCHC (RBC) [Mass/Vol] 33.4 g/dL Normal 29.9-35.2 [facility] Comment on above: Performed By: #### C BC #### [facility] [address] [place], [place] [address] Isaac Ellie MCV (RBC) [Entitic vol] 93.8 fL Normal 81.0-99.0 [facility] Comment on above: Performed By: #### C BC #### [facility] [address] [place] [address] Isaac Ellie Monocytes (Bld) [#/Vol] 0.6 103/ul Normal 0.3-0.8 [facility] Comment on above: Performed By: #### C BC #### [facility] [address] [place] [address] Isaac Ellie Monocytes/100 WBC (Bld) 5.6 % Normal 1.7-12.0 [facility] Comment on above: Performed By: #### C BC #### [facility] [address] [place] [address] Isaac Ellie Neutrophils (Bld) [#/Vol] 6.3 103/ul Normal 1.4-6.5 [facility] Comment on above: Performed By: #### C BC #### [facility] [address] [place] [address] Isaac Ellie Neutrophils/100 WBC (Bld) 59.2 % Normal 43.0-75.0 [facility] Comment on above: Performed By: #### C BC #### [facility] [address] [place] [address] Isaac Ellie Platelet mean volume (Bld) [Entitic vol] 9.4 fL Critically low 9.5-13.5 [facility] Comment on above: Performed By: #### C BC #### [facility] [address] [place] [address] Isaac Ellie Platelets (Bld) [#/Vol] 311 103/ul Normal 150-450 [facility] Comment on above: Performed By: #### C BC #### [facility] [address] [place] [address] Isaac Ellie RBC (Bld) [#/Vol] 4.69 106/ul Normal 4.20-5.40 [facility] Comment on above: Performed By: #### C BC #### [facility] [address] [place], [place] [address] Isaac Argueta WBC (Bld) [#/Vol] 10.7 103/ul Normal 4.0-11.0 [facility] Comment on above: Performed By: #### C BC #### [facility] [address] [place], [place] [address] Isaac Argueta PREG QUANT HCGon 12-28-2019 HCG QUANT <1.00 Normal [facility] Comment on above: Performed By: #### P REGQNT #### [facility] [address] [place], [place] [address] Isaac Argueta HCG RANGE SEE BELOW Normal [facility] Comment on above: Result Comment: 5-50 0-1 WEEK 40-300 1-2 WEEKS 100-1,000 2-3 WEEKS 500-6,000 3-4 WEEKS 5,000-200,000 1-2 MONTHS 10,000-100,000 2-3 MONTHS 3,000-50,000 2ND TRIMESTER 1,000-50,000 3RD TRIMESTER Performed By: #### P REGQNT #### [facility] [address] [place] [address] Isaac Argueta COVID-19 PCRon 12-22-2019 SARS-CoV-2, CORKY Not Detected Normal Not Detected [facility] Comment on above: Result Comment: This test was developed and its performance characteristics determined by [employer]. This test has not been FDA cleared [...] Performed By: #### C VDPCR, CVDSTAT #### [facility] [address] [place] [address] Isaac Argueta PRIORITY COVID PROCESSINGon 12-22-2019 Comment Comment Normal [facility] Health Comment on above: Result Comment: Rece ived Performed By: #### C VDPCR, CVDSTAT #### [facility] [address] [address] Isaac Argueta US PELVIS AND TRANSVAGon US [...] by: ROSANGELA OCHOA Date: 2019-11-27 10:54 Normal [facility] PAP ACOG PANEL 2: 30 to 65on 09-28-2019 Age Gdln ACOG Testing 30-65 Normal [facility] Comment on above: Performed By: #### [id number] #### [facility] [address] [address] Isaac Argueta DIAGNOSIS: Comment Normal [facility] Comment on above: Result Comment: NEGA TIVE FOR INTRAEPITHELIAL LESION OR MALIGNANCY. Performed at: WB Performed By: #### [id number] #### [facility] [address] [place] [address] Isaac Ellie HPV Aptima Negative Normal Negative [facility] Comment on above: Result Comment: This test was developed and its performance characteristics determined by [facility]. It has not been cleared or approved by the Food and Drug Administration. This nucleic acid amplification test detects fourteen high-risk HPV types (16,18,31,33,35,39,45,51,52,56,58,59,66,68) without differentiation. Performed at: =G Performed By: #### [id number] #### [facility] [address] [place] [address] Isaac Ellie Methodology: Comment Normal [facility] Comment on above: Result Comment: This liquid based SurePath(R) pap test was screened with the assistance of an image guided system. Performed at: WB Performed By: #### [id number] #### [facility] [address] [place] [address] Ellie Note: Comment Normal [facility] Comment on above: Result Comment: The Pap smear is a screening test designed to aid in the detection of premalignant and malignant conditions of the uterine cervix. It is not a diagnostic procedure and should not be used as the sole means of detecting cervical cancer. Both false-positive and false-negative reports do occur. . Performed at: WB Performed By: #### [id number] #### [facility] [address] [place], [place] [address] Performed by: Comment Normal [facility] Comment on above: Result Comment: Lobo Frazier, Applications Development Consultant (ASCP) Performed at: WB Performed By: #### [id number] #### [facility] [address] [place], [place] [address] Specimen adequacy: Comment Normal [facility] Comment on above: Result Comment: Sati sfactory for evaluation. Endocervical and/or squamous metaplastic cells (endocervical component) are present. Areas of partially obscuring inflammatory exudate are present. Performed at: WB Performed By: #### [id number] #### [facility] [address] [place], [place] [address] Isaac Argueta . . Normal [facility] Comment on above: Result Comment: Perf ormed at: WB Performed By: #### [id number] #### [facility] [address] [place], [place] [address] Isaac Argueta Vital Signs Date Time Vital Sign Value Performing Clinician Farhan ramírez 10-16-2024 13:29-0400 Body mass index (BMI) [Ratio] 37.12 kg/m2 Dom Alyssa DO Work Phone: [facility] 10-16-2024 13:29-0400 Body weight 104.33 kg Dom Alyssa DO Work Phone: [facility] 10-16-2024 13:29-0400 Diastolic blood pressure 68 mm[Hg] Dom Alyssa DO Work Phone: [facility] 10-16-2024 13:29-0400 Systolic blood pressure 110 mm[Hg] Dom Alyssa DO Work Phone: [facility] 08-29-2024 09:41-0500 Body mass index (BMI) [Ratio] 36.48 kg/m2 Myesha RÍOS Work Phone: [facility] 08-29-2024 09:41-0500 Body weight 102.51 kg Myesha RÍOS Work Phone: [facility] 08-29-2024 09:41-0500 Diastolic blood pressure 70 mm[Hg] Myesha RÍOS Work Phone: [facility] 08-29-2024 09:41-0500 Systolic blood pressure 120 mm[Hg] Myesha RÍOS Work Phone: [facility] 07-23-2024 12:35-0500 Body height 167.6 cm Shanika Alejandro DATA GOVERNANCE ANALYST Work Phone: [facility] 07-23-2024 12:35-0500 Body mass index (BMI) [Ratio] 35.83 kg/m2 Shanika Alejandro DATA GOVERNANCE ANALYST Work Phone: [facility] 07-23-2024 12:35-0500 Body weight 100.7 kg Shanikabret Benitezburg DATA GOVERNANCE ANALYST Work Phone: [facility] 07-23-2024 12:35-0500 Diastolic blood pressure 76 mm[Hg] Shanika Hackenburg DATA GOVERNANCE ANALYST Work Phone: [facility] 07-23-2024 12:35-0500 Heart rate 61 /min Shanika Hasierraenburg DATA GOVERNANCE ANALYST Work Phone: [facility] 07-23-2024 12:35-0500 Respiratory rate 18 /min Shanika Hasierraenburg DATA GOVERNANCE ANALYST Work Phone: [facility] 07-23-2024 12:35-0500 SaO2% (BldA) [Mass fraction] 98 % Shainka Maritzaenburg DATA GOVERNANCE ANALYST Work Phone: [facility] 07-23-2024 12:35-0500 Systolic blood pressure 122 mm[Hg] Shanika Hasierraenburg DATA GOVERNANCE ANALYST Work Phone: [facility] 05-10-2024 09:33-0400 Body height 167.6 cm Emma Stanton MD Work Phone: [facility] 05-10-2024 09:33-0400 Body mass index (BMI) [Ratio] 35.02 kg/m2 Emma Stanton MD Work Phone: [facility] 05-10-2024 09:33-0400 Body weight 98.43 kg Emma Stanton MD Work Phone: [facility] 05-10-2024 09:33-0400 Diastolic blood pressure 72 mm[Hg] Emma Stanton MD Work Phone: [facility] 05-10-2024 09:33-0400 Heart rate 74 /min Emma Stanton MD Work Phone: [facility] 05-10-2024 09:33-0400 Respiratory rate 20 /min Emma Stanton MD Work Phone: [facility] 05-10-2024 09:33-0400 SaO2% (BldA) [Mass fraction] 99 % Emma Stanton MD Work Phone: [facility] 05-10-2024 09:33-0400 Systolic blood pressure 126 mm[Hg] Emma Stanton MD Work Phone: [facility] Healthcare Encounters Encounter Date Encounter Type Care Provider Facility Start: 10-16-2024 End: 10-16-2024 Bamboo flowsheet Dom Alyssa DO Work Phone: [facility] Start: 10-16-2024 End: 10-22-2024 Bamboo flowsheet Dom Alyssa DO Work Phone: [facility] Start: 10-16-2024 End: 10-22-2024 Clinisync Result Encounter Dom Alyssa DO Work Phone: [facility] External Department Unsolicited Start: 10-16-2024 End: 10-16-2024 Patient encounter procedure Dom Alyssa DO Work Phone: [facility] Work Phone: Start: 10-16-2024 End: 10-16-2024 Periodic preventive med est patient 18-39 yrs Dom Alyssa DO Work Phone: [facility] Comment on above: Well woman exam with routine gynecological exam; Pre-operative exam; Pelvic pain in female; Menorrhagia with regular cycle Start: 10-16-2024 End: 10-16-2024 Preprocedural examination done Dom Alyssa DO Work Phone: [facility] Start: 10-16-2024 End: 10-16-2024 ambulatory DOM ALYSSA Not Available Start: 10-05-2024 End: 10-05-2024 ambulatory [facility] Start: 10-01-2024 End: 10-01-2024 Bamboo flowsheet Dom Alyssa DO Work Phone: [facility] Start: 10-01-2024 End: 10-01-2024 Bamboo flowsheet Dom Alyssa DO Work Phone: [facility] Start: 10-01-2024 End: 10-01-2024 ambulatory DOM HUGHESO Not Available Start: 09-12-2024 End: 09-12-2024 Clinisync [...] Not Available Start: 08-10-2024 End: 08-10-2024 ambulatory [facility] Start: 07-23-2024 End: 07-23-2024 Bamboo flowsheet Shanika A Hackenburg DATA GOVERNANCE ANALYST Work Phone: [facility] Start: 07-23-2024 End: 07-23-2024 Bamboo flowsheet Shanika A Hackenburg DATA GOVERNANCE ANALYST Work Phone: [facility] Start: 07-23-2024 End: 07-23-2024 ambulatory SHANIKA A HACKENBURG Not Available Start: 07-23-2024 End: 07-23-2024 Office outpatient visit 15 minutes Shanika A Hackenburg DATA GOVERNANCE ANALYST Work Phone: [facility] Comment on above: Acute diffuse otitis externa of left ear (Primary Dx) Start: 06-15-2024 End: 06-15-2024 [facility] Start: 05-10-2024 End: 05-10-2024 Bamboo flowsheet Emma [...] STANTON Not Available Start: 04-09-2024 End: 04-09-2024 [facility] Start: 03-23-2024 End: 03-23-2024 [facility] Start: 02-17-2024 End: 02-17-2024 [facility] Start: 01-20-2024 End: 01-20-2024 ambulatory EMMA STANTON Not Available Start: 01-18-2024 End: 01-18-2024 [facility] Start: 12-28-2019 End: 12-28-2019 Patient encounter procedure DOM ALYSSA Facility:[facility] Start: 12-21-2019 End: 12-22-2019 Patient encounter procedure DOM ALYSSA Facility:[facility] Start: 11-27-2019 End: 11-28-2019 Patient encounter procedure DOM ALYSSA Facility:[facility] Start: 09-24-2019 End: 09-24-2019 Patient encounter procedure DOM ALYSSA Facility:[facility] Procedures Date Procedure Procedure Detail Performing Clinician Start: 10-16-2024 Urnls dip stick/tabl et rgnt non-auto w/o micrscp Dom Alyssa DO Work Phone: Start: 10-16-2024 IGP,APTIMA HPV,AGE GDLN Generic External Data Provider Start: 09-12-2024 US PELVIS W/ TRANSVAGINAL Generic External Data Provider Start: 08-29-2024 ALL CBC WITH AUTO DIFF Myesha RÍOS Work Phone: Start: 08-29-2024 Urnls dip stick/tabl et rgnt non-auto w/o micrscp Myesha RÍOS Work Phone: Plan of Treatment Date Care Activity Detail Author Start: 03-11-2025 Influenza vaccination Influenz a Vaccine (Season Ended) [facility] Start: 01-07-2025 Influenza vaccination Influenza Vacc ine (#1) [facility] Comment on above: Postponed from 03/11 (Patient Refused) Start: 01-01-2025 End: 01-01-2025 Patient encounter procedure 01/01/2025 1:20 PM EDT Consult [facility] [address] [place] [address] Dom Shah, DO [address] [place], [place] [address] [facility] Start: 10-16-2024 End: 10-16-2024 Patient encounter procedure 10/16/2024 1:20 PM EDT Office Visit [facility] [address] [place] [phone] Dom Shah, DO [address] [place] [address] Arrived [facility] Comment on above: Arrived Start: 10-01-2024 End: 10-01-2024 Patient encounter procedure 10/01/2024 2:00 PM EDT Office Visit [facility] [address] [place] [address] Dmo Shah, DO [address] [place] [address] Arrived [facility] Comment on above: Arrived Start: 09-27-2024 End: 09-27-2024 Patient encounter procedure 09/27/2024 9:10 AM EDT Office Visit [facility] [address] [place] [phone] Dom Shah DO [address] [facility] [address] [place], [place] [id number] [facility] Start: 08-29-2024 End: 08-29-2025 aPTT in Blood by Coagulation assay APTT Lab Routine Menorrhagia with regular cycle Expected: 08/29/2024 (Approximate), Expires: 08/29/2025 [facility] Comment on above: Expected: 08/29/2024 (Approximate), Expires: 08/29/2025 Start: 08-29-2024 End: 08-29-2025 US Pelvis US Pelvis w/ TV Imaging Routine Cramp, abdominal Menorrhagia with regular cycle History of ovarian cyst Expected: 08/29/2024, Expires: 08/29/2025 [facility] Comment on above: Expected: 08/29/2024 , Expires: 08/29/2025 Start: 08-29-2024 End: 08-29-2024 Patient encounter procedure 08/29/2024 9:40 AM EST Office Visit [facility] [address] [place] [phone] Myesha Ta PA [address] [facility] [address] [place], [place] [id number] Arrived [facility] Comment on above: Arrived Start: 05-10-2024 End: 05-10-2024 Patient encounter procedure 05/10/2024 9:40 AM EDT Office Visit [facility] [address] [facility] [place] [address] Emma Stanton MD [address] [facility] [place], [place] [id number] Arrived [facility] Comment on above: Arrived Start: 03-11-2024 Influenza vaccination Influenza Vacc ine (#1) [facility] Start: 2017 Screening for malign ant neoplasm of cervix [facility] Start: 2008 Screening for malign ant neoplasm of cervix Pap Smear [facility] CBC W Auto Different ial panel - Blood CBC and differential Lab Routine Menorrhagia with regular cycle Ordered: 08/29/2024 [facility] Work Phone: Comment on above: Ordered: 08/29/2024 hCG, quantitative, hCG, quantitative, Lab Routine Menorrhagia with regular cycle Ordered: 08/29/2024 [facility] Comment on above: Ordered: 08/29/2024 Hemoglobin A1c/Hemoglobin.total in Blood Hemoglobin A1c Lab Routine Menorrhagia with regular cycle Ordered: 08/29/2024 [facility] Comment on above: Ordered: 08/29/2024 Prothrombin time (PT ) in Blood by Coagulation assay Protime-INR Lab Routine Menorrhagia with regular cycle Ordered: 08/29/2024 [facility] Comment on above: Ordered: 08/29/2024 Thyrotropin [Units/volume] in Serum or Plasma TSH Lab Routine Menorrhagia with regular cycle Ordered: 08/29/2024 [facility] Comment on above: Ordered: 08/29/2024 Thyroxine (T4) free [Mass/volume] in Serum or Plasma T4, free Lab Routine Menorrhagia with regular cycle Ordered: 08/29/2024 [facility] Comment on above: Ordered: 08/29/2024 Immunizations Immunization Date Immunization Notes Care Provider Ulices brito 02-21-2024 tetanus toxoid, redu priyanka diphtheria toxoid, and acellular pertussis vaccine, adsorbed Emma Stanton MD Work Phone: [facility] 04-11-2023 tuberculin skin test ; purified protein derivative solution, intradermal Emma Stanton MD Work Phone: [facility] Work Phone: Payers Date Payer Category Payer Private Health Insurance [facility] [id number] 1987 Unknown [id number] [id number]. 2.593 1987 Unknown [id number] 2.16.840.1.476809.3.579. 2.593 1987 Unknown [id number] 2.16.840.1.309098.3.579. 2.593 1987 Unknown [id number] 2.16.840.1.871112.3.579. 2.593 1987 Unknown [id number] 2.16.840.1.607765.3.579. 2.1285 1987 Unknown [id number] 2.16.840.1.139284.3.579. 2.1285 1987 Unknown [id number] 2.16.840.1.528323.3.579. 2.1285 1987 Unknown [id number] 2.16.840.1.414826.3.579. 2.1285 1987 Unknown [id number] 2.16.840.1.091567.3.579. 2.1285 1987 Unknown [id number] 2.16.840.1.538430.3.579. 2.1285 1987 Unknown [id number] 2.16.840.1.502273.3.579. 2.1285 1987 Unknown [id number] 2.16.840.1.991849.3.579. 2.1258 1987 Unknown [id number] 2.16.840.1.081018.3.579. 2.1258 1987 Unknown [id number] 2.16.840.1.536973.3.579. 2.1258 1987 Unknown [id number] 2.16.840.1.056908.3.579. 2.1259 1987 Unknown [id number] 2.16.840.1.092064.3.579. 2.1259 1987 Unknown [id number] 2.16.840.1.918499.3.579. 2.1259 1959 Private Health Insurance [id number] Social History Date Type Detail Facility Start: 01-20-2024 Tobacco smoking status UTIS Ex-smoke r [facility] End: 03-11-2022 History [...] History of Present illness Narrative 10-16-2024 Lisa Alfonso - 10/16/2024 1:20 PM EDT Note Date [...] on 11/09/[address] Shah at [facility]. MEDICATIONS Current Outpatient Medications Medication Instructions acetaminophen (TYLENOL) 1,000 mg, Daily ibuprofen 400 mg, Every 6 hours PRN temazepam (RESTORIL) 15 mg, Nightly PRN Vortioxetine HBr 10 mg, Daily RT ALLERGIES Allergies Allergen Reactions Cefadroxil Hives Penicillins Hives PROBLEMS Active Ambulatory Problems Diagnosis Date Noted Conductive hearing loss 01/05/2023 Depression ([facility]) 01/05/2023 Insomnia 01/05/2023 Nephrosclerosis (CMS/HCC) 01/05/2023 Pain in both upper extremities 02/22/2023 Generalized anxiety disorder ([facility]/HCC) 01/18/2024 Moderate episode of recurrent major depressive disorder ([facility]/HCC) 01/18/2024 Resolved Ambulatory Problems Diagnosis Date Noted No Resolved Ambulatory Problems Past Medical History: Diagnosis Date Allergies Anxiety Cholesteatoma H/O tubal ligation History of medical problems 08/2016 Wrist fracture, left HISTORY PAST MEDICAL HISTORY SOCIAL HISTORY Past Medical History: Diagnosis Date Allergies Anxiety Cholesteatoma Depression ([facility]) H/O tubal ligation History of [...] ENDOMETRIAL ABLATION 12/2019 INNER EAR SURGERY Right 2006 cholesteatoma TUBAL [...] nursing note reviewed. Exam conducted with a manager integration present. Vitals: Estimated body mass index is [...] reviewed, and patient is to proceed to [facility] OR. Follow Up: Patient is to follow [...] Date Noted Conductive hearing loss 01/05/2023 Depression ([facility]) 01/05/2023 Insomnia 01/05/2023 Nephrosclerosis ([facility]) 01/05/2023 Pain in both upper extremities 02/22/2023 Generalized anxiety disorder ([facility]) 01/18/2024 Moderate episode of recurrent major depressive disorder ([facility]) 01/18/2024 Resolved Ambulatory Problems Diagnosis Date Noted No Resolved Ambulatory Problems Past Medical History: Diagnosis Date Allergies Anxiety Cholesteatoma H/O tubal ligation History of medical problems 08/2016 Wrist fracture, left HISTORY PAST MEDICAL HISTORY SOCIAL HISTORY Past Medical History: Diagnosis Date Allergies Anxiety Cholesteatoma Depression ([facility]) H/O tubal ligation History of [...] nursing note reviewed. Exam conducted with a manager integration present. Vitals: Estimated body mass index is [...] to prevent pneumonia. documented in this encounter [facility] Evaluation note Note Date & Type Note Facility Evaluation note Diagnosis Acute bronchitis due to other specified organisms- Primary documented in this encounter [facility] Evaluation note Note Date & Type Note Facility Evaluation note Diagnosis Acute diffuse otitis externa of left ear- Primary documented in this encounter [facility] Evaluation note Note Date & Type Note Facility Evaluation note Diagnosis Cramp, abdominal Abdominal pain, unspecified site Menorrhagia with regular cycle History of ovarian cyst Personal history of other genital system and obstetric disorders documented in this encounter [facility] Evaluation note Note Date & Type Note Facility Evaluation note Diagnosis Well woman exam with routine gynecological exam Routine gynecological examination Pre-operative exam Unspecified pre-operative examination Pelvic pain in female Unspecified symptom associated with female genital organs Menorrhagia with regular cycle documented in this encounter [facility] Summary Purpose Family History No Family [...] This was performed without difficulty. Note [facility] [place], [place] NAME: SVITLANA OSEGUERA DATE OF : MEDICAL REC#: [id number] HEAD OF BIOLOGY: [address] ADMIT DATE: 12/28/2019 06:09:00 VISUAL EDUCATOR DATE: 01/07/2020 08:00 DICTATING PHYSICIAN: DOM SHAH [...] and content) DATE CREATED AUTHOR 01/31/2020 [facility] DATE CREATED AUTHOR AUTHOR'S ORGANIZ ATION 05/08/2020 [facility] DATE CREATED AUTHOR AUTHOR'S ORGANIZ ATION 10/06/2024 [facility] DATE CREATED AUTHOR AUTHOR'S ORGANIZ ATION 10/17/2024 [facility] dicnv Specialists [facility] Care Teams (unrecognized sec tion and content) Clerical Specialist Relationship Specialty Start Date End Date Emma Stanton MD [address] [place] [address] PCP - General Family Medicine 01/04/23 Clerical Specialist Relationship Specialty Start Date End Date Emma Stanton MD [address] [place] [address] PCP - General Family Medicine 01/04/23 Clerical Specialist Relationship Specialty Start Date End Date Emma Stanton MD [address] [place] [address] PCP - General Family Medicine 01/04/23 Clerical Specialist Relationship Specialty Start Date End Date Emma Stanton MD [address] [place] [address] PCP - General Family Medicine 01/04/23 Clerical Specialist Relationship Specialty [place] [address] [place] [address] [place] [address] PCP - General Family Medicine 01/04/23 Clerical Specialist Relationship Specialty Start Date End Date Emma Stanton MD [address] [facility] [place] [address] PCP - General Family Medicine 01/04/23 Clerical Specialist Relationship Specialty Start Date End Date Emma Stanton MD [address] [facility] [place] [address] PCP - General Family Medicine 01/04/23 Clerical Specialist Relationship Specialty Start Date End Date Emma Stanton MD [address] [facility] [place], [place] [phone] PCP - General Family Medicine 01/04/23 Reason [...] BE BASED ON THE PRIMARY CLINICAL RECORDS. [facility]. provides no warranty or guarantee of the accuracy or completeness of information in this document.
== END 2024-10-26 13:23 | disposition home or self-care (01) ==
LOC: PST 13:22
PROVIDERS: Family Provider Family Medicine; PCP Family Medicine; Visit Provider Obstetrics & Gynecology
DX: Z01.818 Encounter for other preprocedural examination (principal); R10.2 Pelvic and perineal pain; N92.0 Excessive and frequent menstruation with regular cycle

== ENCOUNTER 2024-11-09 08:49 | Day surgery (SDC) | payer OTHER, SELFPAY ==
[2024-10-26 13:58] VITALS: BP 122/83; PULSE 67; TEMP 36.5; O2SAT 99; BMI 37.2
[2024-11-09] VITALS (18 sets, daily range): BP systolic 125–184; BP diastolic 84–125; PULSE 75–114; TEMP 36.4–36.5; O2SAT 97–100; BMI 36.6
[2024-11-09 09:01] LABS: Basophils Absolute Auto 0.1 10^3/uL (0.0-0.1); Basophils Percent Auto 1.3 % (0.2-2.0); Eosinophils Absolute Auto 0.1 10^3/uL (0.0-0.7); Eosinophils Percent Auto 1.6 % (0.9-7.0); Hematocrit 42.2 % (36.0-48.0); Hemoglobin 14.4 g/dL (12.0-16.0); Immature Granulocytes Abs Auto 0.02 10^3/uL (0.00-0.03); Immature Granulocytes Pct Auto 0.2 % (0.0-0.5); Lymphocytes Absolute Auto 2.5 10^3/uL (1.2-3.8); Lymphocytes Percent Auto 28.6 % (20.5-60.0); Mean Corpuscular HGB Conc 34.1 g/dL (29.9-35.2); Mean Corpuscular Hemoglobin 31.8 pg (26.7-34.0); Mean Corpuscular Volume 93.2 fL (81.0-99.0); Mean Platelet Volume 9.2 fL (9.5-13.5); Monocytes Absolute Auto 0.5 10^3/uL (0.3-0.8); Monocytes Percent Auto 5.3 % (1.7-12.0); Neutrophils Absolute Auto 5.5 10^3/uL (1.4-6.5); Platelet Count 396 10^3/uL (150-450); Red Blood Count 4.53 10^6/uL (4.20-5.40); Red Cell Distribution Width 13.2 % (11.0-15.0); White Blood Count 8.7 10^3/uL (4.0-11.0)
[2024-11-09] MEDS: LACTATED RINGER'S SOLUTION 1,000 ML 50 ML IV ×2 (09:26→11:20)
[2024-11-09 09:31] LABS: HCG Quantitative <1 mIU/mL
--- NOTE | 2024-11-09 11:47 | PM.ONB ---
Brief Operative Note Date of procedure: 11/09/24 Pre-op diagnosis general: pelvic pain, aub, dysmenorrhea Post-op diagnosis: same as pre-op Procedure: NAME OF PROCEDURE: [ D&c hysteroscopy with myosure] PROCEDURE: The patient was taken back to the Operating Room where she was prepped and draped in normal sterile fashion after being placed under general anesthesia without difficulty. She was also placed in the dorsal lithotomy position. A weighted speculum was placed in the patient?s vagina. The anterior lip of the cervix was identified and grasped with a single tooth tenaculum. The patient?s uterus was then sounded roughly to [? 6] cm. The patient was then gently dilated using Hegar dilators. The hysteroscope was passed through the patient?s cervix into the uterus. ostia could not be identified dt significant scar tissue from prior ablation. No gross evidence of malignancy, no gross evidence of polyps or fibroids. The hysteroscope was then removed from the uterus. The endometrial curettings were sent out to pathology. The single tooth tenaculum was then removed from the patient's anterior lip of the cervix where excellent hemostasis was noted. All instruments were removed from the patient?s vagina. A sponge stick was placed into the patient's vagina. Attention was turned to the patient's abdomen, where a small umbilical incision was made. The fascia was tented using Blade clamps and the fascia was entered sharply. Confirmation of intraabdominal placement of the 10 mm port was confirmed under direct visualization using a laparoscope. The patient's abdomen was then insufflated using CO2 gas with approximately 4 liters. A second port was placed left laterally, this was done under direct visualization with a 5 mm port. Survey of the patient's abdomen demonstrated normal liver and gallbladder. Survey of the patient's pelvic anatomy demonstrated normal appearing rt and lt ovary and tubes as well as normal appearing uterus. No endometrial implants could be noted, no evidence of any pelvic disease was seen, normal appearing pelvic cavity. both filschie clips were removed that where floating in abdomen, lt ovarian cystotomy with bipolar scissors performedl All instruments were removed from the patient's abdomen. The patient's abdomen was deinsufflated of CO2 gas. The patient tolerated the procedure well. Sponge stick was removed from the patient's vagina. The patient's infraumbilical fascia was closed using #0 Vicryl on a GI needle. The patient's skin was closed laterally and infraumbilically using 4-0 Vicryl. The patient tolerated the procedure well. Sponge, lap and needle counts were correct x 2. The patient was taken to Recovery Room in stable condition. Anesthesia: KHANH Surgeon: Augustus Shah Distance Education Director: Alanis Catherine Estimated blood loss (mL): 5 Pathology: other (endometrial currettings) Condition: stable Disposition: PACU Urinary Catheter Management Urinary Catheter Management Urethral: Cath placed during this visit: no
[2024-11-09] MEDS: PROMETHAZINE HCL 25 MG TABLET PO (12:11)
[2024-11-09] MEDS: ONDANSETRON PF 4 MG/2 ML VIAL IV (12:25)
[2024-11-09] MEDS: HYDROCODONE/ACET 5-325 MG TABLET 1 TAB PO (13:26)
--- NOTE | 2024-11-09 14:37 | PC.NURSE ---
Medicated with oral pain pill for surgical pain; no c/o nausea
== END 2024-11-09 14:10 | disposition home or self-care (01) ==
PROVIDERS: Family Provider Family Medicine; PCP Family Medicine; Visit Provider Obstetrics & Gynecology
PROC: (CPT 840; principal; 2024-11-09 10:10)
DX: R10.2 Pelvic and perineal pain (principal); N92.0 Excessive and frequent menstruation with regular cycle; N83.202 Unspecified ovarian cyst, left side; N93.9 Abnormal uterine and vaginal bleeding, unspecified; Z98.51 Tubal ligation status; Z87.891 Personal history of nicotine dependence
CPT/HCPCS: 49329; 58558; 58662; 36415; 84702; 85025; J0131; J1100; J1885; J2250; J2405; J2704; J3010; Q0169